=== PATIENT | male | born 1940 | race Caucasian/White ===

== ENCOUNTER 2017-06-18 19:07 | Emergency (ER) | payer MEDICARE, SELFPAY | END 2017-06-18 22:45 | disposition home or self-care (01) | PROVIDERS: Emergency Provider Emergency Medicine; Family Provider Family Medicine; Visit Provider Emergency Medicine | DX: R10.31 Right lower quadrant pain (principal); K21.9 Gastro-esophageal reflux disease without esophagitis; D64.9 Anemia, unspecified; Z79.899 Other long term (current) drug therapy; Z72.0 Tobacco use; I20.8 Other forms of angina pectoris; I10 Essential (primary) hypertension | CPT/HCPCS: 71020; 74176; 80053; 81001; 85025; 87086; 96374; 96375; 99284 ==

== ENCOUNTER 2017-07-20 19:33 | Observation (INO) | payer MEDICARE, SELFPAY ==
[2017-07-20 19:36] VITALS: BP 105/68; PULSE 87; RESP 24; TEMP 37.4; O2SAT 98; BMI 23.6
--- NOTE | 2017-07-20 19:47 | CT_ITS ---
CT head/brain wo con Ordering Physician: Arlyn Tsang MD Patient Age: 77 years: Male HSTORY: ITS.REASON: amsaltered mental status. TECHNIQUE: Standard axial CT head without contrast.. Brain and bone windows performed and sent to PACS COMPARISON :. No previous studies available. FINDINGS No acute intracranial findings. No hemorrhage. No mass. No subdural collection. Diffuse cerebral atrophy, typical to slightly advanced for age. This yields generous CSF space surrounding the cerebral hemispheres along with slightly generous sulci bilaterally. The ventricles appear normal in size. Basal cisterns are generous volume but clear.. No territorial infarct. Likely tiny 3 mm lacunar at the left basal ganglia axial image 26. Most certainly old feature. The posterior fossa unremarkable. CP angles clear. The bone windows. Skull Satisfactory. The visualized paranasal sinuses are well-developed and clear with orbits unremarkable. Opacification of several mastoid air cells toward right mastoid tip reflecting minimal right mastoid effusion at right mastoid tip. The more superior air cells right mastoid appear clear. Left mastoid air cells unremarkable IACs unremarkable. Middle ear clear. IMPRESSION: No acute intracranial findings Diffuse cerebral atrophy.
[2017-07-20 20:05] VITALS: BP 102/77; PULSE 86; RESP 20; O2SAT 98
--- NOTE | 2017-07-20 20:14 | HMH.EDAMS ---
ED Disposition Clinical Impression: Hypoglycemia Altered mental status Qualifiers: Altered mental status type: unspecified Qualified Code(s): R41.82 - Altered mental status, unspecified Disposition: Admitted as Observation Condition on Discharge: Fair Time of Disposition: 20:30 - Critical Care Critical Care Time: No Attestation: On 07/20/17, the high probability of a clinically significant, sudden or life threatening deterioration of the following system(s) required my full and direct attention, intervention and personal management. The time I documented below is in addition to time spent performing reported procedures but includes the following listed in this critical care notation. Total Critical Care Time: 45 Vital system(s) involved:: Metabolic Failure My critical care processes included: Assessment & monitoring of V/S, Initial and Re-exams, Data Review/Interpretation, Coordinating Care, Medication Orders and management, Documentation Medical Decision Making - Medical Records Medical records reviewed: Yes: I reviewed the patient's medical records. Vital Signs: 07/20/17 19:36 07/20/17 20:05 07/20/17 21:57 Temperature 99.4 F 98.5 F Temperature Source Oral Oral Pulse Rate 87 Pulse Rate [Brachial] Pulse Rate [Right Ulnar] 87 86 Respiratory Rate 24 20 18 Blood Pressure 107/77 Blood Pressure [Right Arm] 105/68 102/77 Blood Pressure Mean [Right Arm] 80 85 Blood Pressure Source Automatic Cuff Blood Pressure Source [Right Arm] Manual Cuff/ Auscultation Automatic Cuff Blood Pressure Position Supine Blood Pressure Position [Right Arm] Supine Supine 02 Sat by Pulse Oximetry 98 98 Oxygen Delivery Method Room Air Room Air Nasal Cannula Oxygen Flow Rate (LPM) 2 07/20/17 22:00 Temperature 97.7 F Temperature Source Oral Pulse Rate Pulse Rate [Brachial] 85 Pulse Rate [Right Ulnar] Respiratory Rate 18 Blood Pressure Blood Pressure [Right Arm] 156/61 Blood Pressure Mean [Right Arm] 92 Blood Pressure Source Blood Pressure Source [Right Arm] Automatic Cuff Blood Pressure Position Blood Pressure Position [Right Arm] Sitting 02 Sat by Pulse Oximetry 100 Oxygen Delivery Method Nasal Cannula Oxygen Flow Rate (LPM) 2 - Lab Data Lab results reviewed: Yes: I reviewed the patient's lab results. Lab Results 07/20/17 20:33: WBC 4.8, RBC 3.17 L, Hgb 10.1 L, Hct 30.9 L, MCV 97.5 H, MCH 31.7 H, MCHC 32.5, RDW 14.4, Plt Count 191, MPV 9.8, Neut % (Auto) 77.6, Lymph % (Auto) 11.8, [place] % (Auto) 9.3, Eos % (Auto) 0.9, Baso % (Auto) 0.4, Neut # (Auto) 3.7, Lymph # (Auto) 0.[address], [place] # (Auto) 0.4, Eos # (Auto) 0.0, Baso # (Auto) 0.0 07/20/17 20:33: Sodium 141, Potassium 3.5, Chloride 103, Carbon Dioxide 29, Anion Gap 12.5, BUN 21 H, Creatinine 1.10, Estimated Creat Clear 60, Estimated GFR 65, Est GFR ( Amer) 79, Glucose 124 H, Calcium 8.7, Total Bilirubin 0.9, AST 31, ALT 33, Alkaline Phosphatase 146 H, Total Protein 6.1 L, Albumin 3.2 L, Globulin 2.9, Albumin/Globulin Ratio 1.1 Result diagrams: 07/20/17 20:33 07/20/17 20:33 Orders (Tests/Meds): ED MEDICATIONS Generic Name Dose Route Start Last Admin Trade Name Sixto PRN Reason Stop Dose Admin Aspirin 81 mg 07/21/17 09:00 Aspirin 81mg Enteric Coated Tablet PO 08/20/17 08:59 DAILY [facility] Atorvastatin Calcium 40 mg 07/21/17 21:00 Lipitor 40mg Tablet PO 08/20/17 20:59 HS [facility] Blood Glucose Test Strips 1 each 07/20/17 21:00 07/20/17 22:42 Fsbs (Bedside Glucose), Results Only !! FS 08/19/17 20:59 1 each ACHS VIGNESH Administration Clopidogrel Bisulfate 75 mg 07/21/17 09:00 Plavix 75mg Tablet PO 08/20/17 08:59 DAILY VIGNESH Dextrose 1,000 mls @ 75 mls/hr 07/20/17 21:46 07/20/17 22:42 Dextrose 5% In Water 1000mls Iv Soln IV 08/19/17 21:29 75 mls/hr .[id number] VIGNESH Administration Insulin Human Lispro 0 unit 07/20/17 21:00 07/20/17 22:42 Humalog 100 Units/Ml 3ml Vial (Ssi) SQ
--- NOTE | 2017-07-20 20:17 | ED_ITS ---
ED Disposition Clinical Impression: Hypoglycemia Altered mental status Qualifiers: Altered mental status type: unspecified Qualified Code(s): R41.82 - Altered mental status, unspecified Disposition: Admitted as Observation Condition on Discharge: Fair Time of Disposition: 20:30 - Critical Care Critical Care Time: No Attestation: On 07/20/17, the high probability of a clinically significant, sudden or life threatening deterioration of the following system(s) required my full and direct attention, intervention and personal management. The time I documented below is in addition to time spent performing reported procedures but includes the following listed in this critical care notation. Total Critical Care Time: 45 Vital system(s) involved:: Metabolic Failure My critical care processes included: Assessment & monitoring of V/S, Initial and Re-exams, Data Review/Interpretation, Coordinating Care, Medication Orders and management, Documentation Medical Decision Making - Medical Records Medical records reviewed: Yes: I reviewed the patient's medical records. Vital Signs: 07/20/17 19:36 07/20/17 20:05 07/20/17 21:57 Temperature 99.4 F 98.5 F Temperature Source Oral Oral Pulse Rate 87 Pulse Rate [Brachial] Pulse Rate [Right Ulnar] 87 86 Respiratory Rate 24 20 18 Blood Pressure 107/77 Blood Pressure [Right Arm] 105/68 102/77 Blood Pressure Mean [Right Arm] 80 85 Blood Pressure Source Automatic Cuff Blood Pressure Source [Right Arm] Manual Cuff/ Auscultation Automatic Cuff Blood Pressure Position Supine Blood Pressure Position [Right Arm] Supine Supine 02 Sat by Pulse Oximetry 98 98 Oxygen Delivery Method Room Air Room Air Nasal Cannula Oxygen Flow Rate (LPM) 2 07/20/17 22:00 Temperature 97.7 F Temperature Source Oral Pulse Rate Pulse Rate [Brachial] 85 Pulse Rate [Right Ulnar] Respiratory Rate 18 Blood Pressure Blood Pressure [Right Arm] 156/61 Blood Pressure Mean [Right Arm] 92 Blood Pressure Source Blood Pressure Source [Right Arm] Automatic Cuff Blood Pressure Position Blood Pressure Position [Right Arm] Sitting 02 Sat by Pulse Oximetry 100 Oxygen Delivery Method Nasal Cannula Oxygen Flow Rate (LPM) 2 - Lab Data Lab results reviewed: Yes: I reviewed the patient's lab results. Lab Results 07/20/17 20:33: WBC 4.8, RBC 3.17 L, Hgb 10.1 L, Hct 30.9 L, MCV 97.5 H, MCH 31.7 H, MCHC 32.5, RDW 14.4, Plt Count 191, MPV 9.8, Neut % (Auto) 77.6, Lymph % (Auto) 11.8, [place] % (Auto) 9.3, Eos % (Auto) 0.9, Baso % (Auto) 0.4, Neut # ( Auto) 3.7, Lymph # (Auto) 0.6 L, [place] # (Auto) 0.4, Eos # (Auto) 0.0, Baso # ( Auto) 0.0 07/20/17 20:33: Sodium 141, Potassium 3.5, Chloride 103, Carbon Dioxide 29, Anion Gap 12.5, BUN 21 H, Creatinine 1.10, Estimated Creat Clear 60, Estimated GFR 65, Est GFR ( Amer) 79, Glucose 124 H, Calcium 8.7, Total Bilirubin 0.9, AST 31, ALT 33, Alkaline Phosphatase 146 H, Total Protein 6.1 L, Albumin 3.2 L, Globulin 2.9, Albumin/Globulin Ratio 1.1 Result diagrams: 07/20/17 20:33 07/20/17 20:33 Orders (Tests/Meds): ED MEDICATIONS Generic Name Dose Route Start Last Admin Trade Name Freq PRN Reason Stop Dose Admin Aspirin 81 mg 07/21/17 09:00 Aspirin 81mg E
[2017-07-20 20:41] LABS: Basophils % 0.4 % (0.1-2.0); Eosinophils % 0.9 % (0.1-12.0); Hematocrit 30.9 % (42.0-52.0); Hemoglobin 10.1 g/dL (14.1-18.0); Lymphocytes # 0.6 K/mm3 (0.7-4.5); Lymphocytes % 11.8 K/mm3 (10-50); Mean Corpuscular HGB Conc 32.5 g/dL (31.8-35.4); Mean Corpuscular Hemoglobin 31.7 pg (27.0-31.2); Mean Corpuscular Volume 97.5 fl (80-94); Mean Platelet Volume 9.8 fl (7.4-10.4); Monocytes # 0.4 K/mm3 (0.1-1.0); Monocytes % 9.3 % (1.7-9.3); Neutrophils # 3.7 K/mm3 (1.8-7.8); Neutrophils % 77.6 % (37.0-80.0); Platelet Count 191 K/mm3 (142-424); Red Blood Count 3.17 M/mm3 (4.60-6.20); Red Cell Distribution Width 14.4 % (11.5-17.5); White Blood Count 4.8 K/mm3 (4.8-10.8)
[2017-07-20 20:54] LABS: Alanine Aminotransferase 33 U/L (12-78); Albumin Level 3.2 gm/dL (3.4-5.0); Albumin/Globulin Ratio 1.1 (1.1-1.8); Alkaline Phosphatase 146 U/L (46-116); Anion Gap 12.5 mEq/L (5-15); Aspartate Amino Transferase 31 U/L (15-37); Bilirubin,Total 0.9 mg/dL (0.2-1.0); Blood Urea Nitrogen 21 mg/dL (7-18); Calcium 8.7 mg/dL (8.5-10.1); Carbon Dioxide 29 mmol/L (21.0-32.0); Chloride 103 mmol/L (98-107); Creatinine Clearance Estimated 60 mL/min (0-300); Estimated Glomerular Filt Rate 65 ml/min (>60); GFR (African American) 79 ML/MIN (>60); Globulin 2.9 gm/dl (1.3-3.2); Glucose 124 mg/dL (74-106); Potassium 3.5 mmoL/L (3.5-5.1); Sodium 141 mmol/L (136-145); Total Protein,Serum 6.1 gm/dL (6.4-8.2)
[2017-07-20 21:57] VITALS: BP 107/77; PULSE 87; RESP 18; TEMP 36.9; O2SAT 98
[2017-07-20 22:00] VITALS: BP 156/61; PULSE 85; RESP 18; TEMP 36.5; O2SAT 100; BMI 28.0
--- NOTE | 2017-07-20 22:08 | XR_ITS ---
XR lumbar spine 5 view Ordering Physician: Soy Edouard MD Patient Age: 77 years: Male HISTORY: ITS.REASON: s/p fall, pain Fall 3 weeks ago with large amount of bruising left aspect of lower back.. Bruising extends to left gluteus. TECHNIQUE: 5 view lumbar spine series AP lateral both obliques and lateral spot view lumbar spine submitted for review COMPARISON : Also 2008 lumbar spine series, as well as May 23, 2017 2 view chest FINDINGS . Decreased height at L1 again noted. It appears similar to a April 2017 chest x-ray but better viewed on today's lumbar series.. This same process is also seen on previous CT studies from May 2017 and November 2016. However if any thing appears to be some subtle increased sclerosis throughout L1 and particularly at the inferior endplate of L1 and superior endplate of L2 with marked irregularity of these endplates. Most likely this reflects some progressive] reactive endplate changes degenerated disc and Schmorl's node with generous circumferential marginal osteophytes L1/2 disc level. However possibility of a discitis is also entertained radiographically. I see the white count is normal but suggest correlation with sedimentation rate/ ESR; and if significant back pain here a follow-up MR lumbar spine with and without contrast would be be warranted. ( Again reviewing the CT from May there is some irregularity & fragmentation about this narrowed disc, particularly on the left margin of the irregular endplate, with numerous subchondral cystic changes on both sides of this disc, but I see discrete paraspinal mass to support discitis or other process) L2/3. Disc is fairly well-maintained but with generous marginal osteophytes the left L3/4 Degenerative disc space narrowing to posteriorly and to the right right with a generous marginal osteophytes to the right L4/5:. mild levoscoliosis at this level, with Marked disc space narrowing to the right & marginal osteophytes to the right. L5/S1. . Prominent diffuse disc space narrowing with mild sclerotic reactive endplate changes but intact endplates. Spondylosis with mild posterior hypertrophic ridging. Moderate Facet arthropathy, & hypertrophy. SI joints appear satisfactory sacrum unremarkable. Diffuse demineralization of pelvis. AP view of hips, intact. Right kidney: Again see the long-standing abnormal area of calcification along inferior pole the right kidney medial aspect. This is seen on previous CT dating back to 2007. Likely reflects residual from old injury or hemorrhage. There is also some scattered punctate calculi throughout the right kidney noted.. Left kidney. Round density medial to the left kidney measures 7.8 cm cm round density medial to the left kidney compatible with a large cyst which is been previously seen here on prior CT. At the pelvis received a calcified vas deferens and clip right lower quadrant from appendectomy clips right upper quadrant from cholecystectomy. Aorta is calcified with no obvious aneurysm on plain film nor prior CT -------IMPRESSION 1. No discrete acute findings no fractures. 2. Multilevel degenerative changes lumbar spine again evident.: 3. Particularly notable is the very irregular & sclerotic endplates about the degenerated L1/L2 disc space., . Associated slight loss of height & slight wedging at L1 appear stable since AprXR Irregularity at this L1/2 disc most likely a long-standing & slowly progressing erosive reactive endplate changes from disc degeneration and and Schmorl's node formation.. The possibility of a underlying discitis is briefly considered with this radiographic appearance, but felt unlikely after reviewing normal white count reviewing recent reconstruction views the lumbar spin
--- NOTE | 2017-07-20 22:08 | XR_ITS ---
XR pelvis 1-2V Ordering Physician: Soy Edouard MD Patient Age: 77 years: Male HISTORY: ITS.REASON: s/p fall, pain TECHNIQUE: AP pelvis radiograph COMPARISON :CT abdomen pelvis reconstructions 06/18/2017 FINDINGS Mild diffuse demineralization. Osseous pelvis appears intact. AP view the hips reveal no acute findings. The hip joint spaces with slight narrowing at superior medial aspect and some mild hypertrophic lipping about the margins of acetabulum right greater than left. Note minor cystic changes along the superior aspect of the right femoral neck at the subcapital region. This could reflect femoral acetabular impingement in the past.. Mild degenerative changes both hips. Mild sclerotic changes inferior right SI joint thickened mild degenerative change.. Diffuse faint atherosclerotic calcification throughout the arterial structures pelvis likely reflects underlying diabetes or renal disease.. The degenerative changes lower L-spine described on previous L-spine report IMPRESSION: ======= No fracture nor acute findings at the pelvis. . diffuse demineralization. Mild degenerative changes at hips Degenerative changes lower L-spine described on previous L-spine study.
--- NOTE | 2017-07-20 22:45 | PC.NURSE ---
TO RADIOLOGY PER STRETCHER FOR XRAYS
[2017-07-20 23:00] VITALS: O2SAT 98
[2017-07-20 23:36] LABS: POC Glucose,Bedside 139 mg/dL
[2017-07-21 04:00] VITALS: BP 122/43; PULSE 77; RESP 18; TEMP 36.7; O2SAT 96
--- NOTE | 2017-07-21 04:08 | PC.NURSE ---
REPORTED PAIN TO BACK UPON ADMISSION, PRN PAIN MEDICATION GIVEN. PT STATES 2 WEEKS AGO HE HAD FALLEN AND HIT HIS HEAD, BUTTOCKS, AND BACK, BRUISING NOTED TO LOWER LUMBAR REGION AND BUTTOCKS. PT FSBS STABLE. A&OX3. CASE ASSISTANT LUNG AUSUCLTATION. BS ACTIVE IN ALL 4 QAUDS. VSS. SHERMAN. PUPILS NON-REACTIVE, PT STATES HE HAS HAD SURGERY IN BOTH EYES. NO ACUTE DISTRESS NOTED. WILL CONTINUE TO MONITOR.
[2017-07-21 06:00] LABS: POC Glucose,Bedside 147 mg/dL
--- NOTE | 2017-07-21 06:33 | PC.NURSE ---
UPON ROUND IV NOTED TO BE INFILTRATED, IMMEDIATELY D/C FLUIDS, REMOVED IV, CATHETER WAS INTACT. WARM COMPRESS AND ELEVATED APPLIED. PT TOLERATED WELL AND DENIED PAIN AT IV SITE. NEW IV ACCESS WAD OBTAINED.
--- NOTE | 2017-07-21 07:04 | P.CONPHA_ITS ---
[facility] Pharm[facility] VTE Monitoring - Patient Demographics Admission date: 07/20/17 Report Date: 07/21/17 Time: 07:03 Allergies/Adverse Reactions: Patient Allergies No Known Allergies Allergy (Verified 07/20/17 22:04) Height: 1.68 m Weight: 78.925 kg Patient Problems: Current Active Problems Altered mental status (Acute) Hypoglycemia (Acute) - VTE Risk Labs: VTE Related Lab Results Hgb 10.1 g/dL (14.1-18.0) L 07/20/17 20:33 Hct 30.9 % (42.0-52.0) L 07/20/17 20:33 Plt Count 191 K/mm3 (142-424) 07/20/17 20:33 BUN 21 mg/dL (7-18) H 07/20/17 20:33 Creatinine 1.10 mg/dL (0.70-1.30) 07/20/17 20:33 Estimated Creat Clear 60 mL/min (0-300) 07/20/17 20:33 VTE Score: 6 VTE Risk Level: Moderate Risk - Prophylaxis VTE Prophylaxis Ordered?: Yes Types of VTE Prophylaxis: TEDS Knee High Location of Applied Device: Bilateral Lower Extremeties - VTE Diagnosis Confirmed Treatment or plan recommended: Continue Current Treatment
--- NOTE | 2017-07-21 07:20 | PC.NURSE ---
REPORT GIVEN TO Radha MENDES W/C
--- NOTE | 2017-07-21 07:28 | PC.NURSE ---
REPORT GIVEN Julian CREWS RN
[2017-07-21 07:40] VITALS: BP 145/56; PULSE 75; RESP 18; TEMP 36.6; O2SAT 97
--- NOTE | 2017-07-21 08:16 | HMH.DCSUM ---
General - General Admission date: 07/20/17 Objective Vital signs: Temp Pulse Resp BP Pulse Ox 97.9 F 75 18 145/56 97 07/21/17 07:40 07/21/17 07:40 07/21/17 07:40 07/21/17 07:40 07/21/17 07:40 Results Labs on day of discharge: Labs from last 24 hours 07/21/17 07/20/17 05:52 22:35 POC Glucose 147 139 Meds Home Medications Medication Instructions Recorded Confirmed Type Aspirin [Aspirin 81mg EC Tab] 81 mg PO DAILY 07/20/17 07/20/17 History Atorvastatin Calcium [Atorvastatin 40 mg PO HS 07/20/17 07/20/17 History 40mg Tab] Cholecalciferol (Vitamin D3) 5,000 unit PO DAILY 07/20/17 07/20/17 History [Vitamin D3] Clopidogrel Bisulfate [Plavix 75mg 75 mg PO DAILY 07/20/17 07/21/17 History Tab] Cyanocobalamin/Folic Acid [Vitamin 1 each PO DAILY 07/20/17 07/20/17 History D79-Neuhb Acid Tablet] Furosemide [Furosemide 40MG tAB] 40 mg PO DAILY 07/20/17 07/20/17 History Gabapentin [Gabapentin 400mg Cap] 400 mg PO TID 07/20/17 07/20/17 History Ibuprofen [Ibuprofen 600mg Tab] 600 mg PO QID PRN 07/20/17 07/20/17 History Irbesartan [Irbesartan] 75 mg PO DAILY 07/20/17 07/21/17 History Metformin HCl [Metformin 500mg 500 mg PO BID 07/20/17 07/21/17 History Tablet] Metoprolol Tartrate [Lopressor 25 mg PO BID 07/20/17 07/21/17 History 25mg tablet] Pantoprazole Sodium [Protonix 40mg 40 mg PO DAILY 07/20/17 07/20/17 History tablet] Pioglitazone HCl [Pioglitazone HCl] 30 mg PO DAILY 07/20/17 07/21/17 History glipiZIDE [Glipizide ER] 10 mg PO BID 07/20/17 07/21/17 History Allergies Allergy/AdvReac Type Severity Reaction Status Date / Time No Known Allergies Allergy Verified 07/20/17 22:04 Discharge Plan - Patient Discharge Instructions ACTIVITY: Continue current activity DIET: diabetic diet - Follow up Plan Follow up with: Navi Laguna [Primary Care Provider] - (3-4 days) Disposition: Home, Self-Residential Medications: Home Medications Medication Instructions Recorded Confirmed Type Aspirin [Aspirin 81mg EC Tab] 81 mg PO DAILY 07/20/17 07/20/17 History Atorvastatin Calcium [Atorvastatin 40 mg PO HS 07/20/17 07/20/17 History 40mg Tab] Cholecalciferol (Vitamin D3) 5,000 unit PO DAILY 07/20/17 07/20/17 History [Vitamin D3] Clopidogrel Bisulfate [Plavix 75mg 75 mg PO DAILY 07/20/17 07/21/17 History Tab] Cyanocobalamin/Folic Acid [Vitamin 1 each PO DAILY 07/20/17 07/20/17 History J18-Comkj Acid Tablet] Furosemide [Furosemide 40MG tAB] 40 mg PO DAILY 07/20/17 07/20/17 History Gabapentin [Gabapentin 400mg Cap] 400 mg PO TID 07/20/17 07/20/17 History Ibuprofen [Ibuprofen 600mg Tab] 600 mg PO QID PRN 07/20/17 07/20/17 History Irbesartan [Irbesartan] 75 mg PO DAILY 07/20/17 07/21/17 History Metformin HCl [Metformin 500mg 500 mg PO BID 07/20/17 07/21/17 History Tablet] Metoprolol Tartrate [Lopressor 25 mg PO BID 07/20/17 07/21/17 History 25mg tablet] Pantoprazole Sodium [Protonix 40mg 40 mg PO DAILY 07/20/17 07/20/17 History tablet] Pioglitazone HCl [Pioglitazone HCl] 30 mg PO DAILY 07/20/17 07/21/17 History glipiZIDE [Glipizide ER] 10 mg PO BID 07/20/17 07/21/17 History Prescriptions/Medication Reconciliation: Continue Gabapentin [Gabapentin 400mg Cap] 400 mg PO TID Pioglitazone HCl [Pioglitazone HCl] 30 mg PO DAILY Irbesartan [Irbesartan] 75 mg PO DAILY Aspirin [Aspirin 81mg EC Tab] 81 mg PO DAILY Pantoprazole Sodium [Protonix 40mg tablet] 40 mg PO DAILY Cholecalciferol (Vitamin D3) [Vitamin D3] 5,000 unit PO DAILY Atorvastatin Calcium [Atorvastatin 40mg Tab] 40 mg PO HS Ibuprofen [Ibuprofen 600mg Tab] 600 mg PO QID PRN PRN Reason: As Needed For Fever Or Pain Furosemide [Furosemide 40MG tAB] 40 mg PO DAILY Metoprolol Tartrate [Lopressor 25mg tablet] 25 mg PO BID Clopidogrel Bisulfate [Plavix 75mg Tab] 75 mg PO DAILY Metformin HCl [Metformin 5
--- NOTE | 2017-07-21 08:19 | P.DS_ITS ---
General - General Admission date: 07/20/17 Objective Vital signs: Temp Pulse Resp BP Pulse Ox 97.9 F 75 18 145/56 97 07/21/17 07:40 07/21/17 07:40 07/21/17 07:40 07/21/17 07:40 07/21/17 07:40 Results Labs on day of discharge: Labs from last 24 hours 07/21/17 07/20/17 05:52 22:35 POC Glucose 147 139 Meds Home Medications Medication Instructions Recorded Confirmed Type Aspirin [Aspirin 81mg EC Tab] 81 mg PO DAILY 07/20/17 07/20/17 History Atorvastatin Calcium [Atorvastatin 40 mg PO HS 07/20/17 07/20/17 History 40mg Tab] Cholecalciferol (Vitamin D3) 5,000 unit PO DAILY 07/20/17 07/20/17 History [Vitamin D3] Clopidogrel Bisulfate [Plavix 75mg 75 mg PO DAILY 07/20/17 07/21/17 History Tab] Cyanocobalamin/Folic Acid [Vitamin 1 each PO DAILY 07/20/17 07/20/17 History J24-Gdhcl Acid Tablet] Furosemide [Furosemide 40MG tAB] 40 mg PO DAILY 07/20/17 07/20/17 History Gabapentin [Gabapentin 400mg Cap] 400 mg PO TID 07/20/17 07/20/17 History Ibuprofen [Ibuprofen 600mg Tab] 600 mg PO QID PRN 07/20/17 07/20/17 History Irbesartan [Irbesartan] 75 mg PO DAILY 07/20/17 07/21/17 History Metformin HCl [Metformin 500mg 500 mg PO BID 07/20/17 07/21/17 History Tablet] Metoprolol Tartrate [Lopressor 25 mg PO BID 07/20/17 07/21/17 History 25mg tablet] Pantoprazole Sodium [Protonix 40mg 40 mg PO DAILY 07/20/17 07/20/17 History tablet] Pioglitazone HCl [Pioglitazone HCl] 30 mg PO DAILY 07/20/17 07/21/17 History glipiZIDE [Glipizide ER] 10 mg PO BID 07/20/17 07/21/17 History Allergies Allergy/AdvReac Type Severity Reaction Status Date / Time No Known Allergies Allergy Verified 07/20/17 22:04 Discharge Plan - Patient Discharge Instructions ACTIVITY: Continue current activity DIET: diabetic diet - Follow up Plan Follow up with: Navi Laguna [Primary Care Provider] - (3-4 days) Disposition: Home, Self-Fdc Medications: Home Medications Medication Instructions Recorded Confirmed Type Aspirin [Aspirin 81mg EC Tab] 81 mg PO DAILY 07/20/17 07/20/17 History Atorvastatin Calcium [Atorvastatin 40 mg PO HS 07/20/17 07/20/17 History 40mg Tab] Cholecalciferol (Vitamin D3) 5,000 unit PO DAILY 07/20/17 07/20/17 History [Vitamin D3] Clopidogrel Bisulfate [Plavix 75mg 75 mg PO DAILY 07/20/17 07/21/17 History Tab] Cyanocobalamin/Folic Acid [Vitamin 1 each PO DAILY 07/20/17 07/20/17 History V13-Bmrge Acid Tablet] Furosemide [Furosemide 40MG tAB] 40 mg PO DAILY 07/20/17 07/20/17 History Gabapentin [Gabapentin 400mg Cap] 400 mg PO TID 07/20/17 07/20/17 History Ibuprofen [Ibuprofen 600mg Tab] 600 mg PO QID PRN 07/20/17 07/20/17 History Irbesartan [Irbesartan] 75 mg PO DAILY 07/20/17 07/21/17 History Metformin HCl [Metformin 500mg 500 mg PO BID 07/20/17 07/21/17 History Tablet] Metoprolol Tartrate [Lopressor 25 mg PO BID 07/20/17 07/21/17 History 25mg tablet] Pantoprazole Sodium [Protonix 40mg 40 mg PO DAILY 07/20/17 07/20/17 History tablet] Pioglitazone HCl [Pioglitazone HCl] 30 mg PO DAILY 07/20/17 07/21/17 History glipiZIDE [Glipizide ER] 10 mg PO BI
--- NOTE | 2017-07-21 09:44 | HMH.HPDC ---
<Lauryn Munoz - Last Filed: 07/21/17 15:45> General - General Admission date: 07/20/17 Discharge date: 07/21/17 *Admission Date: 07/20/17 *Chief complaint: low blood sugar *History of present illness: Mr Ceron is a 77-year-old male patient with a history of Type 2 DM, CAD with cardiomyopathy, and depression who was brought to the emergency room by EMS after he was found unresponsive with a low blood sugar at home. He was given 1 dose of dextrose which immediately restored his level of alertness. The son stated that a similar episode had happened early in the morning when he first went to see his dad. He was confused at that time and when he check his sugar, he found it to be low. He gave him some sweets which increased his BS. Later with the syncopal episode and heart disease the son was afraid not to have him assessed in the ER. He awakened in the ER. He denied CP and SOB. He was admitted for further evaluation and treatment. This AM the patient remains comfortable. He is sitting up in the bed eating his breakfast. To note also: the patient was admitted to [facility] 05/19-05/26/2017 with CAP. He also had a NSTEMI and with cardiac cath had stent placements. He went home from this hospitalization with his sons looking after him. He did have a fall off of the porch and hurt his back. He has been ambulating without difficulty. Patient states that he was started on a new diabetic med last week (does not remember the name) after which he has had low BS. [facility] History Medical History: Reports:: Cancer (SKIN), Congestive Heart Failure, Diabetes Mellitus Type 2, Hyperlipidemia Denies:: Diabetes Mellitus Type 1 Other Medical History: Reports: Cataracts Other Surgeries: Yes: Appendectomy, Cancer Surgery (SKIN CA SURGERY), Coronary Stent Amputation: No Fractures: No - *Social History Smoking Status: Never smoker Alcohol Intake: never Occupational Status: retired, disabled Household Members: none - Psychiatric History Expresses thoughts of harming self/others: None Suicide Plan Description: No Plan *Family Hx:: Diabetes Review of Systems - Constitutional Denies anorexia, Denies body ache(s), Denies fever(s) - ENT Reports sore throat, Denies dizziness, Denies nasal congestion - *Cardiovascular Denies chest pain, Denies shortness of breath, Denies rapid, pounding, or irregular heartbeat - *Respiratory Denies chest congestion, Denies cough, Denies shortness of breath - *Gastrointestinal Denies abdominal pain, Denies change in bowel habits, Denies loose stools, Denies nausea, Denies vomiting - *Genitourinary Denies difficulty urinating, Denies painful urination - *Musculoskeletal Reports joint pain, Reports back pain, Denies abnormal walking - Psychiatric Reports depression Exam Vital signs and Labs for Last 24 Hours: Temp Pulse Resp BP Pulse Ox 97.9 F 75 18 145/56 97 07/21/17 07:40 07/21/17 07:40 07/21/17 07:40 07/21/17 07:40 07/21/17 07:40 Laboratory Results - last 24 hr 07/20/17 22:35: POC Glucose 139 07/21/17 05:52: POC Glucose 147 I & O for Last 24 hours: Intake & Output 07/18/17 07/19/17 07/20/17 07/21/17 11:59 11:59 11:59 11:59 Intake Total 380 / 380 Output Total 300 / 300 Balance 80 / 80 Weight 173 lb 15.997 oz Radiology Reports for the Last 24 Hours: 07/20/[address] IMPRESSION: No acute intracranial findings Diffuse cerebral atrophy. X-ray of back 07/20/17 2. Multilevel degenerative changes lumbar spine again evident.: 3. Particularly notable is the very irregular & sclerotic endplates about the degenerated L1/L2 disc space., . Associated slight loss of height & slight wedging at L1 appear stable since AprXR Irregularity at this L1/2 disc most likely a long-standing & slowly progressing erosive reactive endplate changes from disc degeneration and and Schmorl's node formation.. The possibility of a unde
--- NOTE | 2017-07-21 11:57 | SW/DCPLANNER ---
Updated patient information has been faxed to [facility] to resume patient home health services. I have also spoke with Nilda from [facility] to confirm that Mr Ceron is still a patient at this agency. Patient discharged home this morning.
== END 2017-07-21 09:45 | disposition home or self-care (01) ==
LOC: ER 20:22 → 2ND 20:52
PROVIDERS: Admitting Provider Family Medicine; Emergency Provider Emergency Medicine; Family Provider Family Medicine; PCP Family Medicine; Visit Provider Family Medicine
DX: E11.649 Type 2 diabetes mellitus with hypoglycemia without coma (principal); R41.82 Altered mental status, unspecified; I25.10 Atherosclerotic heart disease of native coronary artery without angina pectoris; I42.9 Cardiomyopathy, unspecified; I25.2 Old myocardial infarction; E78.5 Hyperlipidemia, unspecified; I50.9 Heart failure, unspecified; Z95.5 Presence of coronary angioplasty implant and graft; Z85.828 Personal history of other malignant neoplasm of skin; Z79.84 Long term (current) use of oral hypoglycemic drugs; Z96.41 Presence of insulin pump (external) (internal); Z79.02 Long term (current) use of antithrombotics/antiplatelets; Z79.82 Long term (current) use of aspirin; Z79.899 Other long term (current) drug therapy
CPT/HCPCS: 70450; 72100; 72170; 80053; 82962; 85025; 93005; 96366; 99284; G0378

== ENCOUNTER 2017-09-25 06:12 | Inpatient (IN) ==
[2017-09-25 06:45] LABS: Basophils % 0.5 % (0.1-2.0); Eosinophils # 0.1 K/mm3 (0.0-0.4); Eosinophils % 2.2 % (0.1-12.0); Hematocrit 36.2 % (42.0-52.0); Hemoglobin 11.2 g/dL (14.1-18.0); Lymphocytes # 1.8 K/mm3 (0.7-4.5); Lymphocytes % 37.5 K/mm3 (10-50); Mean Corpuscular Hemoglobin 31.8 pg (27.0-31.2); Mean Corpuscular Volume 102.8 fl (80-94); Mean Platelet Volume 9.7 fl (7.4-10.4); Monocytes # 0.4 K/mm3 (0.1-1.0); Monocytes % 9.2 % (1.7-9.3); Neutrophils # 2.4 K/mm3 (1.8-7.8); Neutrophils % 50.5 % (37.0-80.0); Platelet Count 174 K/mm3 (142-424); Red Blood Count 3.52 M/mm3 (4.60-6.20); Red Cell Distribution Width 13.7 % (11.5-17.5); White Blood Count 4.7 K/mm3 (4.8-10.8)
[2017-09-25 06:53] LABS: Anion Gap 5.6 mEq/L (5-15); Potassium 3.6 mmoL/L (3.5-5.1)
--- NOTE | 2017-09-25 07:22 | Emergency Department Note ---
ED Disposition Clinical Impression: Congestive heart failure Qualifiers: Heart failure type: unspecified Heart failure chronicity: acute on chronic Qualified Code(s): I50.9 - Heart failure, unspecified Community acquired pneumonia Qualifiers: Laterality: unspecified laterality Qualified Code(s): J18.9 - Pneumonia, unspecified organism Disposition: Admitted as Observation Condition on Discharge: Good Referrals: Navi Laguna [Primary Care Provider] - - Critical Care Critical Care Time: No Attestation: On 09/25/17, the high probability of a clinically significant, sudden or life threatening deterioration of the following system(s) required my full and direct attention, intervention and personal management. The time I documented below is in addition to time spent performing reported procedures but includes the following listed in this critical care notation. Medical Decision Making - Medical Records Medical records reviewed: Yes: I reviewed the patient's medical records. - Arturo Inquiry Pt receiving controlled substance: No Vital Signs: 09/25/17 06:14 09/25/17 06:53 Temperature 97.7 F Temperature Source Temporal Artery Scan Pulse Rate 87 Pulse Rate [Right Radial] 85 Respiratory Rate 20 Blood Pressure [Right Arm] 111/89 Blood Pressure Mean [Right Arm] 96 Blood Pressure Source [Right Arm] Automatic Cuff Blood Pressure Position [Right Arm] Supine 02 Sat by Pulse Oximetry 92 L Oxygen Delivery Method Room Air - Lab Data Lab results reviewed: Yes: I reviewed the patient's lab results. Lab Results 09/25/17 06:20: WBC 4.7 L, RBC 3.52 L, Hgb 11.2 L, Hct 36.2 L, MCV 102.8 H, MCH 31.8 H, MCHC 31.0 L, RDW 13.7, Plt Count 174, MPV 9.7, Neut % (Auto) 50.5, Lymph % (Auto) 37.5, [place] % (Auto) 9.2, Eos % (Auto) 2.2, Baso % (Auto) 0.5, Neut # (Auto) 2.4, Lymph # (Auto) 1.8, [place] # (Auto) 0.4, Eos # (Auto) 0.1, Baso # (Auto) 0.0 09/25/17 06:20: Sodium 138, Potassium 3.6, Chloride 102, Carbon Dioxide 34 H, Anion Gap 5.6, BUN 23 H, Creatinine 0.94, Estimated Creat Clear 65, Estimated GFR 78, Est GFR ( Amer) 94, Glucose 286 H 09/25/17 06:20: B-Natriuretic Peptide 610 H 09/25/17 06:20: Total Creatine Kinase 159, CK-MB (CK-2) 4.7 H, CK-MB (CK-2) Rel Index 3.0, Troponin I 0.03, TSH 4.41 H, Thyroxine (T4) 12.5 Result diagrams: 09/25/17 06:20 09/25/17 06:20 Orders (Tests/Meds): ED MEDICATIONS Discontinued Medications Generic Name Dose Route Start Last Admin Trade Name Freq PRN Reason Stop Dose Admin Albuterol/Ipratropium 3 ml 09/25/17 06:31 09/25/17 06:51 Duoneb 3ml Neb IH 09/25/17 06:32 3 ml ONCE ONE Administration Furosemide 40 mg 09/25/17 07:50 09/25/17 07:56 Lasix 40mg/4ml Vial IV 09/25/17 07:51 40 mg ONCE ONE Administration Methylprednisolone Sodium Succinate 125 mg 09/25/17 06:31 09/25/17 06:37 Solu-Medrol 125mg/2ml Vial IV 09/25/17 06:32 125 mg ONCE ONE Administration ORDERS Category Date Time Status XR chest portable Stat Exams 09/25/17 06:31 Taken - ECG Data Tracing #1 I reviewed this ECG and interpreted as documented below: Normal Sinus Rhythm: Yes Ischemic changes: non-specific ST-T wave changes Resp/SOB HPI - General Chief Complaint: Shortness of Breath/Dyspnea Stated Complaint: SOB Time Seen by Provider: 09/25/17 07:22 Mode of Arrival: Ambulatory Source of Information: Patient, Relative, Medical Record Limitations: No Limitations Description of Symptoms (Recalled from ER Triage Doc. by RN): trouble breathing with back pain for 2 weeks, states he was dropped by his pmd in [place] - History of Present Illness progressive sob over the last 2 weeks with hx of chf Complaint: shortness of breath Onset (ago): day(s) Context: medication noncompliance Severity: moderate Relieving factors: oxygen Known history of: congestive heart failure Treatment prior to arrival: oxygen - Related Data Home oxygen amount: 2 liters Home Medications Medication Instructions Recorded Confirmed Aspirin [Aspirin 81mg EC Tab] 81 mg PO DAILY 07/20/17 09/25/17 Atorvastatin Calcium [Atorvastatin 40 mg PO HS 07/20/17 09/25/17 40mg Tab] Cholecalciferol (Vitamin D3) 5,000 unit PO DAILY 07/20/17 09/25/17 [Vitamin D3] Clopidogrel Bisulfate [Plavix 75mg 75 mg PO DAILY 07/20/17 09/25/17 Tab] Cyanocobalamin/Folic Acid [Vitamin 1 each PO DAILY 07/20/17 09/25/17 A17-[id number] Acid Tablet] Furosemide [Furosemide 40MG tAB] 40 mg PO DAILY 07/20/17 09/25/17 Gabapentin [Gabapentin 400mg Cap] 400 mg PO TID 07/20/17 09/25/17 Ibuprofen [Ibuprofen 600mg Tab] 600 mg PO QID PRN 07/20/17 09/25/17 Irbesartan 75 mg PO DAILY 07/20/17 09/25/17 Metformin HCl [Metformin 500mg 500 mg PO BID 07/20/17 09/25/17 Tablet] Metoprolol Tartrate [Lopressor 25 mg PO BID 07/20/17 09/25/17 25mg tablet] Pantoprazole Sodium [Protonix 40mg 40 mg PO DAILY 07/20/17 09/25/17 tablet] Pioglitazone HCl 30 mg PO DAILY 07/20/17 09/25/17 Allergies Allergy/AdvReac Type Severity Reaction Status Date / Time No Known Allergies Allergy Verified 07/20/17 22:04 [facility] History I have reviewed the patient's past medical history: Yes Medical History: Reports:: Congestive Heart Failure, Diabetes Mellitus Type 2, Hyperlipidemia Denies:: Cancer, Diabetes Mellitus Type 1, MRSA Other Medical History: Reports: Cataracts Other Surgeries: Yes: Angiogram, Appendectomy, Cancer Surgery (SKIN CA SURGERY) , Coronary Stent Amputation: No Fractures: No - Social History Smoking Status: Former smoker Alcohol Intake: never Occupational Status: retired, disabled Household Members: none - Psychiatric History Expresses thoughts of harming self/others: None Suicide Plan Description: No Plan Family Hx:: Diabetes ROS Obtained: Yes All systems reviewed & no additional complaints - Constitutional Constitutional: Denies fever(s) - Eyes Eyes: Denies change in vision - ENT Ears, Nose, Mouth, and Throat: Denies sore throat - Cardiovascular Cardiovascular: Denies chest pain, Reports dyspnea, Reports pedal edema - Respiratory Respiratory: No cough, Yes dyspnea, No coughing up blood - Gastrointestinal Gastrointestingal: Denies: abdominal pain - Musculoskeletal Musculoskeletal: Reports joint pain - Integumentary/Breasts Skin/Breast: Denies rash, Reports other (skin changes lt heel) - Neurologic Neurologic: Denies seizure-like activity Physical Exam - General General appearance: in no apparent distress - Head Head exam: normocephalic - Eye Eye exam: Present: PERRL, EOMI - ENT ENT exam: Present: mucous membranes dry - Neck Neck exam: Present: trachea midline - Respiratory Respiratory exam: Present: other (dec bs bilat ). Absent: respiratory distress - Cardiovascular Cardiovascular exam: Present: regular rate, systolic murmur - Abdominal Exam Abdominal exam: Present: soft - Extremities Exam Extremities exam: Present: pedal edema - Neurological Exam Neurological exam: Present: alert, oriented X3, CN II-XII intact - Skin Skin exam: Present: other (decubitus lt heel)
[2017-09-25 07:49] LABS: T4 (Thyroxine) 12.5 ug/dl (4.7-13.3); Thyroid Stimulating Hormone 4.41 uIU/ml (0.358-3.740)
--- NOTE | 2017-09-25 09:49 | Cardiology Report ---
PROCEDURE: INDICATIONS FOR THE TEST: Chest pain COPD Heart Murmur Tobacco Smoking Palpitations Fatigue Syncope Edema Hypertension Diabetes Mellitus Rheumatic Fever SOBXDOE ObesityXHyperlipidemia Family History HD Additional History CHF PATIENT INFORMATION HEIGHT: 68 WEIGHT:160 GENDER: Male B/P:178/80 2-D/M-MODE INTERPRETATION: 2-D MEASUREMENTS OBSERVED VALUES IN CMS Right Ventricular Dimension (RVDd) 1.6 Interventricular Septum (Thickness)(IVsd) .9 Left Ventricular Internal Dimensions(LVIDd) 3.7 Left Ventricular Posterior Wall (Thickness)(LVPWd) 1.2 Aortic Root 3.4 Aortic Cusp Separation 1.9 Left Atrial Dimensions (LAD) 3.6 2D 1. Left atrium is qualitatively moderately enlarged, left ventricle is normal size, there is mild concentric left ventricular hypertrophy, visually estimated ejection fraction 50%, there is moderate hypokinesis involving the basal septum and inferobasal wall. 2. The right atrium and right ventricle are qualitatively mildly enlarged with normal contractility. 3. The aortic valve is thickened and calcified leaflet continue to display mobility. 4. The mitral valve has mitral calcification. 5. The tricuspid valve is grossly normal. 6. The pulmonic valve is poorly visualized. 7. There is trivial pericardial effusion and left-sided pleural effusion seen. DOPPLER INTERROGATION: Doppler interrogation of the aortic, mitral and tricuspid valvular presence of mild mitral and tricuspid regurgitation, calculated right ventricular systolic pressure 68 mmHg consistent with moderate pulmonary hypertension, grade 1 diastolic dysfunction seen with tissue Doppler evidence of raised left atrial pressure. CONCLUSION: 1. Qualitatively moderately enlarged left atrium, normal left ventricular size, mild concentric left ventricular hypertrophy, visually estimated ejection fraction 50% with segmental wall motion abnormality described above, grade 1 diastolic dysfunction seen with tissue Doppler evidence of raised left atrial pressure. 2. Thickened and calcified aortic valve without Doppler evidence of aortic stenosis or aortic insufficiency 3. Mild mitral and tricuspid regurgitation, calculated right ventricular systolic pressure is 68 mmHg consistent moderate pulmonary hypertension. 4. Trivial pericardial effusion and large left-sided pleural effusion seen.
--- NOTE | 2017-09-25 09:58 | Consult Report ---
History of Present Illness Consult date: 09/25/17 Requesting physician: Zuleyma Basilio Consult reason: shortness of breath Chief complaint: SOA Additional Medical History:: 1. DM, diagnosed about 2006 A. untreated since 2009 after of 2. Second hand smoke exposure from A. Suspected COPD 3. HTN 4. Hyperlipidemia 5. Elevated troponins/NSTEMI, 05/19/2017 A. Bilateral pneumonia B. Echo, normal LVEF C. LHC with LAD KARI, 04/2017. DAPT. Multivessel remaining disease for which medical therapy recommended. 6. History of elevated LFT's A. History of liver biopsy B. No ETOH use 7. History of medication noncompliance History of present illness: 77-year-old white male with known coronary artery disease and previous non-ST elevation NV in April 2017 at which time the patient underwent cardiac catheterization with subsequent stenting of his LAD and recommendation for medical therapy for the remaining coronary artery disease. Patient is coming by his son today who relates a 2 week history of increasing shortness of breath. Evaluation in the emergency room reveals normal troponins with elevated BNP and chest x-ray evidence of congestive heart failure. Echocardiogram shows preserved ejection fraction with evidence of diastolic dysfunction. Patient has been admitted with cardiology consulted for congestive heart failure management. Patient was last seen in the office in May 2017 and has failed to follow- up with us since then. [facility] History Medical History: Reports:: Congestive Heart Failure, Diabetes Mellitus Type 2, Hyperlipidemia Denies:: Cancer, Diabetes Mellitus Type 1, MRSA Other Medical History: Reports: Cataracts Other Surgeries: Yes: Angiogram, Appendectomy, Cancer Surgery (SKIN CA SURGERY) , Coronary Stent Amputation: No Fractures: No - *Social History Smoking Status: Former smoker Alcohol Intake: never Occupational Status: retired, disabled Household Members: none - Psychiatric History Expresses thoughts of harming self/others: None Suicide Plan Description: No Plan *Family Hx:: Diabetes Meds Home Medications Medication Instructions Recorded Confirmed Type Aspirin [Aspirin 81mg EC Tab] 81 mg PO DAILY 07/20/17 09/25/17 History Atorvastatin Calcium [Atorvastatin 40 mg PO HS 07/20/17 09/25/17 History 40mg Tab] Cholecalciferol (Vitamin D3) 5,000 unit PO DAILY 07/20/17 09/25/17 History [Vitamin D3] Clopidogrel Bisulfate [Plavix 75mg 75 mg PO DAILY 07/20/17 09/25/17 History Tab] Cyanocobalamin/Folic Acid [Vitamin 1 each PO DAILY 07/20/17 09/25/17 History Y53-Iecon Acid Tablet] Furosemide [Furosemide 40MG tAB] 40 mg PO DAILY 07/20/17 09/25/17 History Gabapentin [Gabapentin 400mg Cap] 400 mg PO TID 07/20/17 09/25/17 History Ibuprofen [Ibuprofen 600mg Tab] 600 mg PO QID PRN 07/20/17 09/25/17 History Irbesartan 75 mg PO DAILY 07/20/17 09/25/17 History Metformin HCl [Metformin 500mg 500 mg PO BID 07/20/17 09/25/17 History Tablet] Metoprolol Tartrate [Lopressor 25 mg PO BID 07/20/17 09/25/17 History 25mg tablet] Pantoprazole Sodium [Protonix 40mg 40 mg PO DAILY 07/20/17 09/25/17 History tablet] Pioglitazone HCl 30 mg PO DAILY 07/20/17 09/25/17 History Allergies Allergy/AdvReac Type Severity Reaction Status Date / Time No Known Allergies Allergy Verified 07/20/17 22:04 Review of Systems - *Cardiovascular Reports shortness of breath, Reports shortness of breath with activity, Denies chest pain - *Respiratory Reports shortness of breath, Reports shortness of breath with activity - *Gastrointestinal Denies abdominal pain - *Genitourinary Denies difficulty urinating - *Neurologic Denies seizure-like activity Exam Vital signs and Labs for Last 24 Hours: Temp Pulse Resp BP Pulse Ox 97.7 F 87 20 111/89 92 L 09/25/17 06:14 09/25/17 06:53 09/25/17 06:14 09/25/17 06:14 09/25/17 06:14 - *Routine Neck Exam Comments: Difficult to examine adequately due to accessory muscle use. - *Routine Respiratory Exam Present: rales, diminished air movement - *Routine Cardiovascular Exam Present: RRR - *Routine Extremities Exam Comments: Bilateral lower extremity edema up into the shins. 2+ edema noted. - *Routine Neurological Exam Present: alert, oriented X3, moving all extremities Assessment and Plan (1) Congestive heart failure Current visit: Yes Status: Acute Qualifiers: Heart failure type: unspecified Heart failure chronicity: acute on chronic Qualified Code(s): I50.9 - Heart failure, unspecified Category: Medical Code(s): I50.9 - Heart failure, unspecified (2) Community acquired pneumonia Current visit: Yes Status: Acute Qualifiers: Laterality: unspecified laterality Qualified Code(s): J18.9 - Pneumonia, unspecified organism Category: Medical Code(s): J18.9 - Pneumonia, unspecified organism (3) CAD (coronary artery disease) Current visit: No Status: Chronic Category: Medical Code(s): I25.10 - Atherosclerotic heart disease of [place] coronary artery without angina pectoris (4) Type 2 diabetes mellitus Current visit: No Status: Chronic Category: Medical Code(s): E11.9 - Type 2 diabetes mellitus without complications - Assessment and plan all Dx Assessment and Plan for all problems:: There is some question of medication noncompliance, therefore will restart beta- pernell and ARB therapy along with diuretics intravenously. We will also add nitroglycerin paste and continue to monitor serial cardiac enzymes. This appears to be diastolic congestive heart failure this point. Patient does have evidence of pneumonia on chest x-ray which Dr. Basilio will be treating.
--- NOTE | 2017-09-25 10:36 | History & Physical Report ---
*Admission Date: 09/25/17 *Chief complaint: SOA *History of present illness: Mr. Ceron is a 77-year-old white male with known coronary artery disease and previous non-ST elevation IN in April 2017 at which time the patient underwent cardiac catheterization with subsequent stenting of his LAD and recommendation for medical therapy for the remaining coronary artery disease. He presented to the ER today with a 2 week history of increasing shortness of breath. Evaluation in the emergency room revealed normal troponins with an elevated BNP and chest x-ray evidence of congestive heart failure and a pneumonia. An echocardiogram showed preserved ejection fraction with evidence of diastolic dysfunction. He was admitted with a cardiology consulted for congestive heart failure management and for IV abx for his pneumonia. Of note, I have spoken with the patient's son and he has been noncompliant with his medications. The patient states they make him sick to his stomach so he quit taking everything except for the pill for his leg pain. He does not have his medications with him and his other son has gone to get them. [facility] History Medical History: Reports:: Congestive Heart Failure, Diabetes Mellitus Type 2, Hyperlipidemia Denies:: Cancer, Diabetes Mellitus Type 1, MRSA Other Medical History: Reports: Cataracts Other Surgeries: Yes: Angiogram, Appendectomy, Cancer Surgery (SKIN CA SURGERY) , Coronary Stent Amputation: No Fractures: No - *Social History Smoking Status: Former smoker Alcohol Intake: never Occupational Status: retired, disabled Household Members: none - Psychiatric History Expresses thoughts of harming self/others: None Suicide Plan Description: No Plan *Family Hx:: Diabetes Review of Systems - Constitutional Reports body ache(s), Reports chills, Reports fever(s) - Eyes Denies blurry vision, Denies double vision - ENT Reports nasal congestion, Reports sore throat - *Cardiovascular Reports chest pain, Denies rapid, pounding, or irregular heartbeat - *Respiratory Reports cough, Reports shortness of breath - *Gastrointestinal Reports abdominal pain (bloating), Reports loose stools, Reports nausea, Denies vomiting - *Genitourinary Denies difficulty urinating, Denies painful urination - *Musculoskeletal Reports joint pain (back) - *Neurologic Reports headache(s), Reports weakness, Denies seizure-like activity Meds Home Medications Medication Instructions Recorded Confirmed Type Aspirin [Aspirin 81mg EC Tab] 81 mg PO DAILY 07/20/17 09/25/17 History Atorvastatin Calcium [Atorvastatin 40 mg PO HS 07/20/17 09/25/17 History 40mg Tab] Cholecalciferol (Vitamin D3) 5,000 unit PO DAILY 07/20/17 09/25/17 History [Vitamin D3] Clopidogrel Bisulfate [Plavix 75mg 75 mg PO DAILY 07/20/17 09/25/17 History Tab] Cyanocobalamin/Folic Acid [Vitamin 1 each PO DAILY 07/20/17 09/25/17 History J07-Guunf Acid Tablet] Furosemide [Furosemide 40MG tAB] 40 mg PO DAILY 07/20/17 09/25/17 History Gabapentin [Gabapentin 400mg Cap] 400 mg PO TID 07/20/17 09/25/17 History Ibuprofen [Ibuprofen 600mg Tab] 600 mg PO QID PRN 07/20/17 09/25/17 History Irbesartan 75 mg PO DAILY 07/20/17 09/25/17 History Metformin HCl [Metformin 500mg 500 mg PO BID 07/20/17 09/25/17 History Tablet] Metoprolol Tartrate [Lopressor 25 mg PO BID 07/20/17 09/25/17 History 25mg tablet] Pantoprazole Sodium [Protonix 40mg 40 mg PO DAILY 07/20/17 09/25/17 History tablet] Pioglitazone HCl 30 mg PO DAILY 07/20/17 09/25/17 History Allergies Allergy/AdvReac Type Severity Reaction Status Date / Time No Known Allergies Allergy Verified 07/20/17 22:04 Exam Vital signs and Labs for Last 24 Hours: Temp Pulse Resp BP Pulse Ox 98.4 F 82 20 174/97 96 09/25/17 10:11 09/25/17 10:11 09/25/17 10:11 09/25/17 10:11 09/25/17 10:10 Lab Results 09/25/17 06:20: WBC 4.7 L, RBC 3.52 L, Hgb 11.2 L, Hct 36.2 L, MCV 102.8 H, MCH 31.8 H, MCHC 31.0 L, RDW 13.7, Plt Count 174, MPV 9.7, Neut % (Auto) 50.5, Lymph % (Auto) 37.5, [place] % (Auto) 9.2, Eos % (Auto) 2.2, Baso % (Auto) 0.5, Neut # (Auto) 2.4, Lymph # (Auto) 1.8, [place] # (Auto) 0.4, Eos # (Auto) 0.1, Baso # (Auto) 0.0 09/25/17 06:20: Sodium 138, Potassium 3.6, Chloride 102, Carbon Dioxide 34 H, Anion Gap 5.6, BUN 23 H, Creatinine 0.94, Estimated Creat Clear 65, Estimated GFR 78, Est GFR ( Amer) 94, Glucose 286 H 09/25/17 06:20: B-Natriuretic Peptide 610 H 09/25/17 06:20: Total Creatine Kinase 159, CK-MB (CK-2) 4.7 H, CK-MB (CK-2) Rel Index 3.0, Troponin I 0.03, TSH 4.41 H, Thyroxine (T4) 12.5 09/25/17 09:27: Lactic Acid 2.7 H Microbiology Results 09/25/17 09:27 Blood Blood Culture - Pending 09/25/17 09:27 Blood Blood Culture - Pending - Constitutional no acute distress - *Routine HEENT Exam Head: Present: normocephalic, atraumatic Eye: Present: EOMI, PERRL ENT: Present: mucous membranes dry - *Routine Neck Exam Present: supple, full ROM - *Routine Respiratory Exam Present: rales (bibasilar) - *Routine Cardiovascular Exam Present: RRR - *Routine Abdominal Exam Present: soft, normoactive bowel sounds. Absent: tenderness - *Routine Extremities Exam Present: edema - *Routine Skin Exam Present: intact - *Routine Neurological Exam Present: alert, oriented X3 H&P: Result - Impressions CXR - CHF with right lower lobe pneumonia with small effusion Echo 1. Qualitatively moderately enlarged left atrium, normal left ventricular size, mild concentric left ventricular hypertrophy, visually estimated ejection fraction 50% with segmental wall motion abnormality described above, grade 1 diastolic dysfunction seen with tissue Doppler evidence of raised left atrial pressure. 2. Thickened and calcified aortic valve without Doppler evidence of aortic stenosis or aortic insufficiency 3. Mild mitral and tricuspid regurgitation, calculated right ventricular systolic pressure is 68 mmHg consistent moderate pulmonary hypertension. 4. Trivial pericardial effusion and large left-sided pleural effusion seen. Assessment and Plan (1) Congestive heart failure Current visit: Yes Status: Acute Qualifiers: Heart failure type: unspecified Heart failure chronicity: acute on chronic Qualified Code(s): I50.9 - Heart failure, unspecified Category: Medical Code(s): I50.9 - Heart failure, unspecified (2) Community acquired pneumonia Current visit: Yes Status: Acute Qualifiers: Laterality: unspecified laterality Qualified Code(s): J18.9 - Pneumonia, unspecified organism Category: Medical Code(s): J18.9 - Pneumonia, unspecified organism (3) CAD (coronary artery disease) Current visit: No Status: Chronic Category: Medical Code(s): I25.10 - Atherosclerotic heart disease of [place] coronary artery without angina pectoris (4) Type 2 diabetes mellitus Current visit: No Status: Chronic Category: Medical Code(s): E11.9 - Type 2 diabetes mellitus without complications (5) Medically noncompliant Current visit: Yes Status: Acute Category: Medical Code(s): Z91.19 - Patient's noncompliance with other medical treatment and regimen (6) Elevated lactic acid level Current visit: Yes Status: Acute Category: Medical Code(s): R79.89 - Other specified abnormal findings of blood chemistry - Assessment and plan all Dx Assessment and Plan for all problems:: Cardiology has seen the patient, see their note. Will continue IV abx and await a sputum cx.
[2017-09-26 06:58] LABS: Anion Gap 7.8 mEq/L (5-15); Potassium 3.8 mmoL/L (3.5-5.1)
--- NOTE | 2017-09-26 07:38 | Pharmacy Consult Notes ---
[facility] Pharmacy VTE Monitoring - Patient Demographics Admission date: 09/25/17 Report Date: 09/26/17 Time: 07:38 Allergies/Adverse Reactions: Patient Allergies No Known Allergies Allergy (Verified 07/20/17 22:04) Height: 1.73 m Weight: 80.484 kg Patient Problems: Current Active Problems Congestive heart failure (Acute) Community acquired pneumonia (Acute) Medically noncompliant (Acute) Elevated lactic acid level (Acute) - VTE Risk Labs: VTE Related Lab Results Hgb 11.2 g/dL (14.1-18.0) L 09/25/17 06:20 Hct 36.2 % (42.0-52.0) L 09/25/17 06:20 Plt Count 174 K/mm3 (142-424) 09/25/17 06:20 BUN 35 mg/dL (7-18) H D 09/26/17 06:14 Creatinine 1.31 mg/dL (0.70-1.30) H D 09/26/17 06:14 Estimated Creat Clear 55 mL/min (0-300) 09/26/17 06:14 Was VTE Risk Assessment Performed: Yes VTE Score: 3 VTE Risk Level: Low Risk Clinical Trial Participant: No - Prophylaxis VTE Prophylaxis Ordered?: Yes Types of VTE Prophylaxis: TEDS Knee High
--- NOTE | 2017-09-26 08:27 | Progress Note ---
Internal Medicine - PN: Subj *Date: 09/26/17 *Time: 08:24 Interval history: Patient states he is feeling much better today. His shortness of breath has almost resolved. He is able to lay flat and slept great all night. He has not eaten breakfast yet this morning. He denies any pain. Exam Vital signs and Labs for Last 24 Hours: Temp Pulse Resp BP Pulse Ox 98.2 F 65 18 114/46 96 09/26/17 07:42 09/26/17 07:42 09/26/17 07:42 09/26/17 07:42 09/26/17 07:42 Laboratory Results - last 24 hr 09/25/17 11:14: Total Creatine Kinase 140, CK-MB (CK-2) 4.9 H, CK-MB (CK-2) Rel Index 3.5, Troponin I 0.02 09/25/17 13:40: Lactic Acid Fup @ 4Hr 2.4 H 09/25/17 16:05: Lactic Acid Fup @ 2Hr 2.1 H 09/25/17 17:05: Total Creatine Kinase 149, CK-MB (CK-2) 4.4 H, CK-MB (CK-2) Rel Index 3.0, Troponin I 0.02 09/26/17 06:14: Sodium 137, Potassium 3.8, Chloride 100, Carbon Dioxide 33 H, Anion Gap 7.8, BUN 35 H D, Creatinine 1.31 H D, Estimated Creat Clear 55, Estimated GFR 53 L, Est GFR ( Amer) 64 D, Glucose 364 H D I & O for Last 24 hours: Intake & Output 09/23/17 09/24/17 09/25/17 09/26/17 11:59 11:59 11:59 11:59 Intake Total 840 / 840 Output Total 950 / 950 Balance -110 / -110 Weight 177 lb 177 lb 7 oz - Constitutional no acute distress - *Routine Respiratory Exam Present: rales (bibasilar) - *Routine Cardiovascular Exam Present: RRR - *Routine Abdominal Exam Present: soft, normoactive bowel sounds. Absent: tenderness - *Routine Extremities Exam Absent: edema Assessment and Plan (1) Congestive heart failure Current visit: Yes Status: Acute Qualifiers: Heart failure type: unspecified Heart failure chronicity: acute on chronic Qualified Code(s): I50.9 - Heart failure, unspecified Category: Medical Code(s): I50.9 - Heart failure, unspecified (2) Community acquired pneumonia Current visit: Yes Status: Acute Qualifiers: Laterality: unspecified laterality Qualified Code(s): J18.9 - Pneumonia, unspecified organism Category: Medical Code(s): J18.9 - Pneumonia, unspecified organism (3) CAD (coronary artery disease) Current visit: No Status: Chronic Category: Medical Code(s): I25.10 - Atherosclerotic heart disease of [place] coronary artery without angina pectoris (4) Type 2 diabetes mellitus Current visit: No Status: Chronic Category: Medical Code(s): E11.9 - Type 2 diabetes mellitus without complications (5) Medically noncompliant Current visit: Yes Status: Acute Category: Medical Code(s): Z91.19 - Patient's noncompliance with other medical treatment and regimen (6) Elevated lactic acid level Current visit: Yes Status: Acute Category: Medical Code(s): R79.89 - Other specified abnormal findings of blood chemistry - Assessment and plan all Dx Assessment and Plan for all problems:: Awaiting blood cultures. He has not been able to provide a sputum. His edema has improved as have the rales in his lungs. His shortness of breath has improved. Will discuss further care with Dr. kwong.
--- NOTE | 2017-09-26 09:10 | Progress Note ---
Subjective Date: 09/26/17 Time: 09:07 Principal diagnosis: CHF, pneumonia Interval history: 77 yo WM lieing almost flat in bed sleeping initially. States he slept well. No chest pain and breathing is significantly improved disproportionately to urine output. BP controlled Exam Vital signs and Labs for Last 24 Hours: Temp Pulse Resp BP Pulse Ox 98.2 F 65 18 114/46 96 09/26/17 07:42 09/26/17 07:42 09/26/17 07:42 09/26/17 07:42 09/26/17 07:42 Laboratory Results - last 24 hr 09/25/17 11:14: Total Creatine Kinase 140, CK-MB (CK-2) 4.9 H, CK-MB (CK-2) Rel Index 3.5, Troponin I 0.02 09/25/17 13:40: Lactic Acid Fup @ 4Hr 2.4 H 09/25/17 16:05: Lactic Acid Fup @ 2Hr 2.1 H 09/25/17 17:05: Total Creatine Kinase 149, CK-MB (CK-2) 4.4 H, CK-MB (CK-2) Rel Index 3.0, Troponin I 0.02 09/26/17 06:14: Sodium 137, Potassium 3.8, Chloride 100, Carbon Dioxide 33 H, Anion Gap 7.8, BUN 35 H D, Creatinine 1.31 H D, Estimated Creat Clear 55, Estimated GFR 53 L, Est GFR ( Amer) 64 D, Glucose 364 H D I & O for Last 24 hours: Intake & Output 09/23/17 09/24/17 09/25/17 09/26/17 11:59 11:59 11:59 11:59 Intake Total 840 / 840 Output Total 950 / 950 Balance -110 / -110 Weight 177 lb 177 lb 7 oz - *Routine Respiratory Exam Comments: Rales improved. Rhonchi noted right base. - *Routine Cardiovascular Exam Present: RRR - *Routine Extremities Exam Present: edema Progress Note: A&P (1) Congestive heart failure Status: Acute Assessment and plan: Negative fluid balance by I/O with slight increase in BUN/Cr with IV diuretics. Symptoms significantly better. OK to switch to PO lasix. Current Visit: Yes (2) Community acquired pneumonia Status: Acute Current Visit: Yes (3) CAD (coronary artery disease) Status: Chronic Assessment and plan: Clinically stable. Current Visit: No (4) Type 2 diabetes mellitus Status: Chronic Current Visit: No (5) Medically noncompliant Status: Acute Current Visit: Yes (6) Elevated lactic acid level Status: Acute Current Visit: Yes Assessment and Plan for All Diagnoses:: Continue ASA 81 mg daily Plavix 75 mg daily switch to PO lasix 40 mg daily change metoprolol to succinate 50 mg qHS continue irbesartan 75 mg daily change NTG paste to isosorbide mononitrate 30 mg daily OK for discharge home from cardiology standpoint when ready.
--- NOTE | 2017-09-27 11:55 | Progress Note ---
Internal Medicine - PN: Subj *Date: 09/27/17 *Time: 11:48 Interval history: He states he does not feel all that well today. He is smiling however. He is not short of breath. His oxygen is off right now. 94% sat. He has that right pleural effusion that showed up on his chest x-ray and is mentioned on the echocardiogram as well. He has decreased breath sounds on the right side and some rales on the left. He has some leg edema despite YULI stockings. Exam Vital signs and Labs for Last 24 Hours: Temp Pulse Resp BP Pulse Ox 97.7 F 78 16 132/67 96 09/27/17 07:50 09/27/17 07:50 09/27/17 07:50 09/27/17 07:50 09/27/17 08:00 Laboratory Results - last 24 hr 09/26/17 10:30: Stl Aeromonas (PCR) Not detected, Stl C. cayetanensis PCR Not detected, Stool Rotavirus (PCR) Not detected, Stl Adenov F 40/41 PCR Not detected, Stool Astrovirus (PCR) Not detected, Stool Campylobacter PCR Not detected, Stl C.difficile Tox PCR Not detected, Stool Cryptosporidium PCR Not detected, Stl E.coli Shiga Tox PCR Not detected, Stool E coli O157 PCR Not detected, Stl Enterotoxigenic E PCR Not detected, Stool EPEC (PCR) Not detected , Stool EAEC (PCR) Not detected, Stl E. histolytica PCR Not detected, Stool Giardia Lamblia PCR Not detected, Stool Salmonella PCR Not detected, Stool Sapovirus (PCR) Not detected, Stl P. shigelloides PCR Not detected, Stl Shigella /EIEC PCR Not detected, St Y.enterocolitica PCR Not detected, Stool Vibrio (PCR ) Not detected, Stl Vibrio cholerae PCR Not detected, Stl Norovirus GI/GII PCR Not detected I & O for Last 24 hours: Intake & Output 09/24/17 09/25/17 09/26/17 09/27/17 11:59 11:59 11:59 11:59 Intake Total 960 / 960 960 / 960 Output Total 950 / 950 950 / 950 Balance Weight 177 lb 176 lb 176 lb 1 oz - Constitutional no acute distress - *Routine HEENT Exam ENT: Present: mucous membranes moist - *Routine Respiratory Exam Comments: No respiratory distress. Moving air well. Does have some decreased breath sounds at the bases, more on the right than on the left. I hear some rales on the left. - *Routine Cardiovascular Exam Present: RRR - *Routine Extremities Exam Comments: 2+ edema - *Routine Neurological Exam Present: alert, oriented X3 Assessment and Plan (1) Congestive heart failure Current visit: Yes Status: Acute Qualifiers: Heart failure type: unspecified Heart failure chronicity: acute on chronic Qualified Code(s): I50.9 - Heart failure, unspecified Category: Medical Code(s): I50.9 - Heart failure, unspecified (2) Community acquired pneumonia Current visit: Yes Status: Acute Qualifiers: Laterality: unspecified laterality Qualified Code(s): J18.9 - Pneumonia, unspecified organism Category: Medical Code(s): J18.9 - Pneumonia, unspecified organism (3) CAD (coronary artery disease) Current visit: No Status: Chronic Category: Medical Code(s): I25.10 - Atherosclerotic heart disease of [place] coronary artery without angina pectoris (4) Type 2 diabetes mellitus Current visit: No Status: Chronic Category: Medical Code(s): E11.9 - Type 2 diabetes mellitus without complications (5) Medically noncompliant Current visit: Yes Status: Acute Category: Medical Code(s): Z91.19 - Patient's noncompliance with other medical treatment and regimen (6) Elevated lactic acid level Current visit: Yes Status: Acute Category: Medical Code(s): R79.89 - Other specified abnormal findings of blood chemistry - Assessment and plan all Dx Assessment and Plan for all problems:: IV Lasix was discontinued yesterday. He was receiving 40 mg twice a day. He was started on 40 mg a day p.o. Today I will give him an additional 20 mg IV. He is saline locked. Weights are reviewed. He will be here through the weekend. Perhaps we can discharge him Friday.
[2017-09-28 06:17] LABS: Basophils % 0.4 % (0.1-2.0); Eosinophils # 0.1 K/mm3 (0.0-0.4); Eosinophils % 1.5 % (0.1-12.0); Hematocrit 32.6 % (42.0-52.0); Hemoglobin 10.4 g/dL (14.1-18.0); Lymphocytes % 24.9 K/mm3 (10-50); Mean Corpuscular Hemoglobin 32.2 pg (27.0-31.2); Mean Corpuscular Volume 100.9 fl (80-94); Mean Platelet Volume 9.8 fl (7.4-10.4); Monocytes # 0.3 K/mm3 (0.1-1.0); Neutrophils # 2.6 K/mm3 (1.8-7.8); Neutrophils % 65.2 % (37.0-80.0); Platelet Count 161 K/mm3 (142-424); Red Blood Count 3.23 M/mm3 (4.60-6.20); Red Cell Distribution Width 13.9 % (11.5-17.5); White Blood Count 4.1 K/mm3 (4.8-10.8)
[2017-09-28 06:34] LABS: Anion Gap 5.9 mEq/L (5-15); Potassium 3.9 mmoL/L (3.5-5.1)
--- NOTE | 2017-09-28 10:08 | Progress Note ---
Internal Medicine - PN: Subj *Date: 09/28/17 *Time: 10:06 Interval history: He seems clinically stable. He still has decreased breath sounds on the right. Chest x-ray will be repeated. Perhaps he can be discharged tomorrow. Exam Vital signs and Labs for Last 24 Hours: Temp Pulse Resp BP Pulse Ox 97.2 F L 72 16 170/72 94 L 09/28/17 08:00 09/28/17 08:00 09/28/17 08:00 09/28/17 08:00 09/28/17 08:00 Laboratory Results - last 24 hr 09/27/17 11:49: POC Glucose 231 09/27/17 16:36: POC Glucose 103 09/27/17 21:14: POC Glucose 172 09/28/17 05:35: WBC 4.1 L, RBC 3.23 L, Hgb 10.4 L, Hct 32.6 L, MCV 100.9 H, MCH 32.2 H, MCHC 32.0, RDW 13.9, Plt Count 161, MPV 9.8, Neut % (Auto) 65.2, Lymph % (Auto) 24.9, [place] % (Auto) 8.0, Eos % (Auto) 1.5, Baso % (Auto) 0.4, Neut # ( Auto) 2.6, Lymph # (Auto) 1.0, [place] # (Auto) 0.3, Eos # (Auto) 0.1, Baso # (Auto ) 0.0 09/28/17 05:35: Sodium 138, Potassium 3.9, Chloride 101, Carbon Dioxide 35 H, Anion Gap 5.9, BUN 44 H D, Creatinine 1.29, Estimated Creat Clear 55, Estimated GFR 54 L, Est GFR ( Amer) 66, Glucose 139 H 09/28/17 06:27: POC Glucose 144 I & O for Last 24 hours: Intake & Output 09/25/17 09/26/17 09/27/17 09/28/17 11:59 11:59 11:59 11:59 Intake Total 960 / 960 960 / 960 740 / 740 Output Total 950 / 950 950 / 950 625 / 625 Balance 115 / 115 Weight 177 lb 176 lb 176 lb 1 oz 172 lb 6 oz - Constitutional no acute distress - *Routine Respiratory Exam Comments: Decreased breath sounds in the right base. Few left basilar rales. - *Routine Extremities Exam Comments: Trace leg edema. Assessment and Plan (1) Congestive heart failure Current visit: Yes Status: Acute Qualifiers: Heart failure type: unspecified Heart failure chronicity: acute on chronic Qualified Code(s): I50.9 - Heart failure, unspecified Category: Medical Code(s): I50.9 - Heart failure, unspecified (2) Community acquired pneumonia Current visit: Yes Status: Acute Qualifiers: Laterality: unspecified laterality Qualified Code(s): J18.9 - Pneumonia, unspecified organism Category: Medical Code(s): J18.9 - Pneumonia, unspecified organism (3) CAD (coronary artery disease) Current visit: No Status: Chronic Category: Medical Code(s): I25.10 - Atherosclerotic heart disease of [place] coronary artery without angina pectoris (4) Type 2 diabetes mellitus Current visit: No Status: Chronic Category: Medical Code(s): E11.9 - Type 2 diabetes mellitus without complications (5) Medically noncompliant Current visit: Yes Status: Acute Category: Medical Code(s): Z91.19 - Patient's noncompliance with other medical treatment and regimen (6) Elevated lactic acid level Current visit: Yes Status: Acute Category: Medical Code(s): R79.89 - Other specified abnormal findings of blood chemistry - Assessment and plan all Dx Assessment and Plan for all problems:: Chest x-ray
--- NOTE | 2017-09-29 09:29 | Progress Note ---
Internal Medicine - PN: Subj *Date: 09/29/17 *Time: 09:25 Interval history: Patient states he would just like to . Does not feel well. He is eating very little because he is afraid he will have more diarrhea. He is incontinent of stool. He voids QS. He denies chest pain. He states that shortness of breath has improved since being admitted. He did sit up in a chair yesterday. Exam Vital signs and Labs for Last 24 Hours: Temp Pulse Resp BP Pulse Ox 98.2 F 82 18 147/60 98 09/29/17 07:59 09/29/17 07:59 09/29/17 07:59 09/29/17 07:59 09/29/17 07:59 Laboratory Results - last 24 hr 09/28/17 10:54: POC Glucose 225 09/28/17 15:59: POC Glucose 162 09/28/17 21:23: POC Glucose 190 I & O for Last 24 hours: Intake & Output 09/26/17 09/27/17 09/28/17 09/29/17 11:59 11:59 11:59 11:59 Intake Total 960 / 960 960 / 960 740 / 740 673 / 673 Output Total 950 / 950 950 / 950 625 / 625 400 / 400 Balance 115 / 115 273 / 273 Weight 176 lb 176 lb 1 oz 172 lb 6 oz 178 lb Radiology Reports for the Last 24 Hours: 09/28/2017 chest x-ray IMPRESSION: Diffuse right lower lobe pneumonia with small reactive pleural effusion - Constitutional no acute distress - *Routine Respiratory Exam Comments: . Very decreased breath sounds in right base. - *Routine Cardiovascular Exam Present: RRR - *Routine Abdominal Exam Present: soft, normoactive bowel sounds, distended. Absent: tenderness - *Routine Extremities Exam Absent: edema, calf tenderness - *Routine Skin Exam Present: wounds (Open left heel) - *Routine Neurological Exam Present: alert - Routine Psychiatric Exam Present: depressed Assessment and Plan (1) Congestive heart failure Current visit: Yes Status: Acute Qualifiers: Heart failure type: unspecified Heart failure chronicity: acute on chronic Qualified Code(s): I50.9 - Heart failure, unspecified Category: Medical Code(s): I50.9 - Heart failure, unspecified (2) Community acquired pneumonia Current visit: Yes Status: Acute Qualifiers: Laterality: unspecified laterality Qualified Code(s): J18.9 - Pneumonia, unspecified organism Category: Medical Code(s): J18.9 - Pneumonia, unspecified organism (3) CAD (coronary artery disease) Current visit: No Status: Chronic Category: Medical Code(s): I25.10 - Atherosclerotic heart disease of [place] coronary artery without angina pectoris (4) Type 2 diabetes mellitus Current visit: No Status: Chronic Category: Medical Code(s): E11.9 - Type 2 diabetes mellitus without complications (5) Medically noncompliant Current visit: Yes Status: Acute Category: Medical Code(s): Z91.19 - Patient's noncompliance with other medical treatment and regimen (6) Elevated lactic acid level Current visit: Yes Status: Acute Category: Medical Code(s): R79.89 - Other specified abnormal findings of blood chemistry (7) Depression Current visit: Yes Status: Acute Category: Medical Code(s): F32.9 - Major depressive disorder, single episode, unspecified (8) Open wound of left heel Current visit: Yes Status: Acute Category: Medical Code(s): S91.302A - Unspecified open wound, left foot, initial encounter - Assessment and plan all Dx Assessment and Plan for all problems:: Wound care per nursing. Add duo nebs and chest physiotherapy
--- NOTE | 2017-09-29 09:49 | Progress Note ---
Internal Medicine - PN: Subj *Date: 09/29/17 *Time: 09:48 Exam Vital signs and Labs for Last 24 Hours: Temp Pulse Resp BP Pulse Ox 98.2 F 82 18 147/60 98 09/29/17 07:59 09/29/17 07:59 09/29/17 07:59 09/29/17 07:59 09/29/17 07:59 Laboratory Results - last 24 hr 09/28/17 10:54: POC Glucose 225 09/28/17 15:59: POC Glucose 162 09/28/17 21:23: POC Glucose 190 I & O for Last 24 hours: Intake & Output 09/26/17 09/27/17 09/28/17 09/29/17 23:59 23:59 23:59 23:59 Intake Total 1080 / 1080 720 / 720 693 / 693 240 / 240 Output Total 450 / 450 1125 / 1125 400 / 400 Balance 630 / 630 -405 / -405 293 / 293 240 / 240 Weight 79.832 kg 79.861 kg 78.188 kg 80.739 kg Assessment and Plan (1) Congestive heart failure Current visit: Yes Status: Acute Qualifiers: Heart failure type: unspecified Heart failure chronicity: acute on chronic Qualified Code(s): I50.9 - Heart failure, unspecified Category: Medical Code(s): I50.9 - Heart failure, unspecified (2) Community acquired pneumonia Current visit: Yes Status: Acute Qualifiers: Laterality: unspecified laterality Qualified Code(s): J18.9 - Pneumonia, unspecified organism Category: Medical Code(s): J18.9 - Pneumonia, unspecified organism (3) CAD (coronary artery disease) Current visit: No Status: Chronic Category: Medical Code(s): I25.10 - Atherosclerotic heart disease of [place] coronary artery without angina pectoris (4) Type 2 diabetes mellitus Current visit: No Status: Chronic Category: Medical Code(s): E11.9 - Type 2 diabetes mellitus without complications (5) Medically noncompliant Current visit: Yes Status: Acute Category: Medical Code(s): Z91.19 - Patient's noncompliance with other medical treatment and regimen (6) Elevated lactic acid level Current visit: Yes Status: Acute Category: Medical Code(s): R79.89 - Other specified abnormal findings of blood chemistry (7) Depression Current visit: Yes Status: Acute Category: Medical Code(s): F32.9 - Major depressive disorder, single episode, unspecified (8) Open wound of left heel Current visit: Yes Status: Acute Category: Medical Code(s): S91.302A - Unspecified open wound, left foot, initial encounter The patient's infection will respond to the chosen ABx?: Yes Is the patient receiving the right drug, dose, and route?: Yes Could a more targeted ABx be ordered?: No
--- NOTE | 2017-09-30 08:45 | Progress Note ---
Internal Medicine - PN: Subj *Date: 09/30/17 *Time: 08:15 Interval history: Patient states he had a horrible night. He was incontinent of several diarrhea stools. He will not eat or drink anything today because of this. He denies shortness of breath and is not coughing. He has some abdominal discomfort but otherwise no pain. He ambulates to the bathroom. Disposition was discussed with patient. With care conference yesterday fpc was suggested. He adamantly refuses to go to a fpc. He wants to go home. Son is in the room from [place]. They are asking about a swing bed. This son would like to take his father home with him to [place] but patient refuses at this time. Exam Vital signs and Labs for Last 24 Hours: Temp Pulse Resp BP Pulse Ox 97.7 F 80 18 167/76 99 09/30/17 07:33 09/30/17 07:33 09/30/17 07:33 09/30/17 07:33 09/30/17 07:33 Laboratory Results - last 24 hr 09/29/17 06:23: POC Glucose 115 09/29/17 11:15: POC Glucose 146 09/29/17 16:40: POC Glucose 211 09/29/17 20:17: POC Glucose 220 09/30/17 05:58: POC Glucose 125 I & O for Last 24 hours: Intake & Output 09/27/17 09/28/17 09/29/17 09/30/17 11:59 11:59 11:59 11:59 Intake Total 960 / 960 740 / 740 673 / 673 540 / 540 Output Total 950 / 950 625 / 625 400 / 400 700 / 700 Balance 115 / 115 273 / 273 -160 / -160 Weight 176 lb 1 oz 172 lb 6 oz 178 lb 177 lb 9 oz - Constitutional no acute distress Comments: Appears to feel well. - *Routine Respiratory Exam Comments: Some scattered wheezing. Decreased breath sounds in the right base. - *Routine Cardiovascular Exam Present: RRR - *Routine Abdominal Exam Present: soft, normoactive bowel sounds, tenderness. Absent: distended - *Routine Extremities Exam Absent: edema, calf tenderness - *Routine Neurological Exam Present: alert, oriented X3 Assessment and Plan (1) Congestive heart failure Current visit: Yes Status: Acute Qualifiers: Heart failure type: unspecified Heart failure chronicity: acute on chronic Qualified Code(s): I50.9 - Heart failure, unspecified Category: Medical Code(s): I50.9 - Heart failure, unspecified (2) Community acquired pneumonia Current visit: Yes Status: Acute Qualifiers: Laterality: unspecified laterality Qualified Code(s): J18.9 - Pneumonia, unspecified organism Category: Medical Code(s): J18.9 - Pneumonia, unspecified organism (3) CAD (coronary artery disease) Current visit: No Status: Chronic Category: Medical Code(s): I25.10 - Atherosclerotic heart disease of [place] coronary artery without angina pectoris (4) Type 2 diabetes mellitus Current visit: No Status: Chronic Category: Medical Code(s): E11.9 - Type 2 diabetes mellitus without complications (5) Medically noncompliant Current visit: Yes Status: Acute Category: Medical Code(s): Z91.19 - Patient's noncompliance with other medical treatment and regimen (6) Elevated lactic acid level Current visit: Yes Status: Acute Category: Medical Code(s): R79.89 - Other specified abnormal findings of blood chemistry (7) Diarrhea Current visit: Yes Status: Acute Category: Medical Code(s): R19.7 - Diarrhea, unspecified - Assessment and plan all Dx Assessment and Plan for all problems:: will change meformin due to diarrhea; will stop lasix. Nebs are scheduled. Insurance will not approve a swing bed.
--- NOTE | 2017-10-01 07:52 | Progress Note ---
Internal Medicine - PN: Subj *Date: 10/01/17 *Time: 07:48 Interval history: Patient states he slept well. He also feels better. He has been able to eat a little. He has had no further diarrhea. He denies shortness of breath and chest pain. Exam Vital signs and Labs for Last 24 Hours: Temp Pulse Resp BP Pulse Ox 97.5 F L 85 20 137/54 97 10/01/17 07:45 10/01/17 07:45 10/01/17 07:45 10/01/17 07:45 10/01/17 07:45 Laboratory Results - last 24 hr 09/30/17 11:15: POC Glucose 147 09/30/17 16:17: POC Glucose 115 09/30/17 22:15: POC Glucose 215 10/01/17 05:48: POC Glucose 174 I & O for Last 24 hours: Intake & Output 09/28/17 09/29/17 09/30/17 10/01/17 11:59 11:59 11:59 11:59 Intake Total 740 / 740 673 / 673 540 / 540 480 / 480 Output Total 625 / 625 400 / 400 1100 / 1100 1100 / 1100 Balance 115 / 115 273 / 273 -560 / -560 -620 / -620 Weight 172 lb 6 oz 178 lb 177 lb 9 oz 173 lb 8 oz - Constitutional no acute distress Comments: Sitting on the bedside eating his breakfast. - *Routine Respiratory Exam Comments: Crackles in the left base decreased breath sounds on the right base - *Routine Cardiovascular Exam Present: RRR - *Routine Extremities Exam Absent: edema, calf tenderness - *Routine Neurological Exam Present: alert, oriented X3 Assessment and Plan (1) Congestive heart failure Current visit: Yes Status: Acute Qualifiers: Heart failure type: unspecified Heart failure chronicity: acute on chronic Qualified Code(s): I50.9 - Heart failure, unspecified Category: Medical Code(s): I50.9 - Heart failure, unspecified (2) Community acquired pneumonia Current visit: Yes Status: Acute Qualifiers: Laterality: unspecified laterality Qualified Code(s): J18.9 - Pneumonia, unspecified organism Category: Medical Code(s): J18.9 - Pneumonia, unspecified organism (3) CAD (coronary artery disease) Current visit: No Status: Chronic Category: Medical Code(s): I25.10 - Atherosclerotic heart disease of [place] coronary artery without angina pectoris (4) Type 2 diabetes mellitus Current visit: No Status: Chronic Category: Medical Code(s): E11.9 - Type 2 diabetes mellitus without complications (5) Medically noncompliant Current visit: Yes Status: Acute Category: Medical Code(s): Z91.19 - Patient's noncompliance with other medical treatment and regimen (6) Elevated lactic acid level Current visit: Yes Status: Acute Category: Medical Code(s): R79.89 - Other specified abnormal findings of blood chemistry (7) Diarrhea Current visit: Yes Status: Acute Category: Medical Code(s): R19.7 - Diarrhea, unspecified (8) Hypothyroidism Current visit: Yes Status: Acute Category: Medical Code(s): E03.9 - Hypothyroidism, unspecified - Assessment and plan all Dx Assessment and Plan for all problems:: Patient has improved. Possibly home today.
[2017-10-01 11:36] VITALS: BP 105/57
--- NOTE | 2017-10-01 14:23 | Discharge Summary ---
General - General Admission date: 09/25/17 Discharge date: 10/01/17 HPI HPI: Mr. Ceron is a 77-year-old white male with known coronary artery disease and previous non-ST elevation ID in April 2017 at which time the patient underwent cardiac catheterization with subsequent stenting of his LAD and recommendation for medical therapy for the remaining coronary artery disease. He presented to the ER today with a 2 week history of increasing shortness of breath. Evaluation in the emergency room revealed normal troponins with an elevated BNP and chest x-ray evidence of congestive heart failure and a pneumonia. An echocardiogram showed preserved ejection fraction with evidence of diastolic dysfunction. He was admitted with a cardiology consulted for congestive heart failure management and for IV abx for his pneumonia. Of note, I have spoken with the patient's son and he has been noncompliant with his medications. The patient states they make him sick to his stomach so he quit taking everything except for the pill for his leg pain. He does not have his medications with him and his other son has gone to get them. Hospital Course Hospital Course: The patient's CXR showed CHF with a RLL pneumonia. His echo showed an EF of 50 % and moderate pulmonary hypertension. Cardiology saw the patient and restarted his beta-pernell and ARB therapy along with diuretics intravenously. They also added nitroglycerin paste and continued to monitor serial cardiac enzymes. He was started on IV abx for his pneumonia. His SOA improved after the lasix and he was able to rest. Dr. Basilio discussed his depression and started him on sertraline and trazodone. His oxygen saturations improved. He was switched to PO lasix. He began having some SOA and his CXR showed a pleural effusion. He was given an additional dose of 20mg of IV lasix. He had some diarrhea, but his diarrhea panel was normal. A repeat CXR showed a RLL pneumonia with a reactive pleural effusion. Duonebs and chest physiotherapy were added. The patient continued not to feel well. He refused to eat and drink. A snf was discussed and he refused. The patient's family wanted to take him home with them to [place] and he refused. A swing bed was discussed but was not covered by his insurance. His metformin was discontinued d/t the diarrhea. His TSH was elevated and he was started on synthroid. The patient felt better by 10/01/17. He had no further diarrhea. His SOA resolved. He was stable to be discharged home. Cardiology felt he should continue ASA 81 mg daily, Plavix 75 mg daily, lasix 40 mg daily, metoprolol succinate 50 mg qHS, irbesartan 75 mg daily, and change NTG paste to isosorbide mononitrate 30 mg daily. Objective Vital signs: Temp Pulse Resp BP Pulse Ox 97.3 F L 59 L 20 105/57 95 10/01/17 11:36 10/01/17 11:36 10/01/17 11:36 10/01/17 11:36 10/01/17 11:36 Narrative: - Constitutional no acute distress - *Routine HEENT Exam Head: Present: normocephalic, atraumatic Eye: Present: EOMI, PERRL ENT: Present: mucous membranes dry - *Routine Neck Exam Present: supple, full ROM - *Routine Respiratory Exam Present: rales (bibasilar) - *Routine Cardiovascular Exam Present: RRR - *Routine Abdominal Exam Present: soft, normoactive bowel sounds. Absent: tenderness - *Routine Extremities Exam Present: edema - *Routine Skin Exam Present: intact - *Routine Neurological Exam Present: alert, oriented X3 Results Labs on day of discharge: Labs from last 24 hours 10/01/17 10/01/17 09/30/17 11:29 05:48 22:15 POC Glucose 206 174 215 09/30/17 16:17 POC Glucose 115 DS: Diagnosis - Discharge Diagnosis (1) Congestive heart failure Status: Acute (2) Community acquired pneumonia Status: Acute (3) CAD (coronary artery disease) Status: Chronic (4) Type 2 diabetes mellitus Status: Chronic (5) Medically noncompliant Status: Acute (6) Elevated lactic acid level Status: Acute Discharge Plan - Patient Discharge Instructions ACTIVITY: Continue current activity DIET: continue same diet Patient Instructions: Pneumonia-Adult, Heart Failure, Coronary Artery Disease - Follow up Plan Follow up with: Zuleyma Basilio MD [Staff Physician] - Disposition: Home Health Service Home Medications: Home Medications Medication Instructions Recorded Confirmed Type Aspirin [Aspirin 81mg EC Tab] 81 mg PO DAILY 07/20/17 09/25/17 History Atorvastatin Calcium [Atorvastatin 40 mg PO HS 07/20/17 09/25/17 History 40mg Tab] Cholecalciferol (Vitamin D3) 5,000 unit PO DAILY 07/20/17 09/25/17 History [Vitamin D3] Clopidogrel Bisulfate [Plavix 75mg 75 mg PO DAILY 07/20/17 09/25/17 History Tab] Cyanocobalamin/Folic Acid [Vitamin 1 each PO DAILY 07/20/17 09/25/17 History P01-Atkgc Acid Tablet] Furosemide [Furosemide 40MG tAB] 40 mg PO DAILY 07/20/17 09/25/17 History Ibuprofen [Ibuprofen 600mg Tab] 600 mg PO QIDP PRN 07/20/17 09/26/17 History Irbesartan 75 mg PO DAILY 07/20/17 09/25/17 History Metformin HCl [Metformin 500mg 500 mg PO BID 07/20/17 09/25/17 History Tablet] Metoprolol Tartrate [Lopressor 25 mg PO BID 07/20/17 09/25/17 History 25mg tablet] Pantoprazole Sodium [Protonix 40mg 40 mg PO DAILY 07/20/17 09/25/17 History tablet] Pioglitazone HCl 30 mg PO DAILY 07/20/17 09/25/17 History glipiZIDE [Glipizide ER] 10 mg PO BID 09/26/17 09/26/17 History Prescriptions/Medication Reconciliation: New Levothyroxine Sodium [Synthroid 25mcg (0.025mg) tablet] 25 mcg PO DAILYDM # 30 tablet Gabapentin [Neurontin 100mg cap] 200 mg PO TID #90 cap Continue Pioglitazone HCl 30 mg PO DAILY Irbesartan 75 mg PO DAILY Aspirin [Aspirin 81mg EC Tab] 81 mg PO DAILY Pantoprazole Sodium [Protonix 40mg tablet] 40 mg PO DAILY Cholecalciferol (Vitamin D3) [Vitamin D3] 5,000 unit PO DAILY Atorvastatin Calcium [Atorvastatin 40mg Tab] 40 mg PO HS Ibuprofen [Ibuprofen 600mg Tab] 600 mg PO QIDP PRN PRN Reason: As Needed For Fever Or Pain glipiZIDE [Glipizide ER] 10 mg PO BID Furosemide [Furosemide 40MG tAB] 40 mg PO DAILY Metoprolol Tartrate [Lopressor 25mg tablet] 25 mg PO BID Clopidogrel Bisulfate [Plavix 75mg Tab] 75 mg PO DAILY Metformin HCl [Metformin 500mg Tablet] 500 mg PO BID Cyanocobalamin/Folic Acid [Vitamin V98-Wlwbj Acid Tablet] 1 each PO DAILY Discontinued Gabapentin [Gabapentin 400mg Cap] 400 mg PO TID
== END 2017-10-01 12:30 | disposition home health service (06) ==
LOC: ER 06:12 → 2ND 06:12 → OBSVTOIN 09:34 → 2ND 10:45
PROVIDERS: ADMIT Family Medicine; ATTEND Family Medicine

== ENCOUNTER 2017-10-26 09:14 | Observation (INO) ==
--- NOTE | 2017-10-26 09:30 | Emergency Department Note ---
ED Disposition Clinical Impression: Congestive heart failure, Phimosis, Uncircumcised male, CAD (coronary artery disease), Diabetes, Diabetic ulcer of ankle, Anemia, Thrombocytopenia, Acute renal insufficiency, Medication side effect Disposition: Still a Patient Condition on Discharge: Fair Referrals: Zuleyma Basilio MD [Primary Care Provider] - Mike Starks MD [Staff Physician] - - Critical Care Critical Care Time: No Attestation: On 10/26/17, the high probability of a clinically significant, sudden or life threatening deterioration of the following system(s) required my full and direct attention, intervention and personal management. The time I documented below is in addition to time spent performing reported procedures but includes the following listed in this critical care notation. Medical Decision Making - Arturo Inquiry Pt receiving controlled substance: No Arturo was queried for this patient: No Vital Signs: 10/26/17 09:17 10/26/17 10:30 Temperature 97.4 F L Temperature Source Oral Pulse Rate [Right Brachial] 67 71 Respiratory Rate 22 22 Blood Pressure [Right Arm] 179/87 176/79 Blood Pressure Mean [Right Arm] 117 111 Blood Pressure Source [Right Arm] Automatic Cuff Automatic Cuff Blood Pressure Position [Right Arm] Sitting Sitting 02 Sat by Pulse Oximetry 97 99 Oxygen Delivery Method Room Air Nasal Cannula Oxygen Flow Rate (LPM) 2 - Lab Data Lab Results 10/26/17 09:45: WBC 3.9 L, RBC 3.25 L, Hgb 10.1 L, Hct 32.2 L, MCV 99.0 H, MCH 31.2, MCHC 31.5 L, RDW 13.9, Plt Count 237, MPV 9.3, Neut % (Auto) 66.6, Lymph % (Auto) 21.4, Cloud % (Auto) 9.7 H, Eos % (Auto) 1.8, Baso % (Auto) 0.5, Neut # (Auto) 2.6, Lymph # (Auto) 0.9, Cloud # (Auto) 0.4, Eos # (Auto) 0.1, Baso # ( Auto) 0.0 10/26/17 09:45: Sodium 140, Potassium 4.5, Chloride 103, Carbon Dioxide 30, Anion Gap 11.5, BUN 37 H, Creatinine 1.81 H, Estimated Creat Clear 45, Estimated GFR 37 L, Est GFR ( Amer) 44 L, Glucose 216 H, Calcium 9.3, Magnesium 2.2, Total Bilirubin 0.8, AST 34, ALT 24, Alkaline Phosphatase 230 H, Total Creatine Kinase 246, CK-MB (CK-2) 5.6 H D, CK-MB (CK-2) Rel Index 2.3, Troponin I < 0.02, Total Protein 6.8, Albumin 2.7 L, Globulin 4.1 H, Albumin/ Globulin Ratio 0.7 L 10/26/17 09:45: B-Natriuretic Peptide 605 H Result diagrams: 10/26/17 09:45 10/26/17 09:45 Orders (Tests/Meds): ED MEDICATIONS Generic Name Dose Route Start Last Admin Trade Name Freq PRN Reason Stop Dose Admin Nitroglycerin 0.5 gm 10/26/17 09:45 10/26/17 10:02 Nitroglycerin 1 Inch Oint Udp TD 11/25/17 09:44 0.5 gm Q6H VIGNESH Administration Discontinued Medications Generic Name Dose Route Start Last Admin Trade Name Freq PRN Reason Stop Dose Admin Furosemide 20 mg 10/26/17 09:55 10/26/17 10:01 Lasix 20mg/2ml Vial IV 10/26/17 09:56 20 mg ONCE ONE Administration ORDERS Category Date Time Status Lactic Acid Stat Lab 10/26/17 10:49 Ordered UA [Urinalysis and Microscopic] Stat Lab 10/26/17 10:03 Ordered ECG Request by /Nilesh Stat Y 10/26/17 09:37 Ordered - Radiology Data #1 Image(s): Chest Image Reviewed: Yes I reviewed the patient's radiology image Preliminary Findings: Abnormal Pulmonary vascular congestion with perihilar patchy infiltrates suggestive of early CHF, fluid in the right middle lobe for the fissure. - ECG Data Tracing #1 Normal sinus rhythm 71/min, baseline artifact especially in lead V1 and V2 with no acute findings unchanged from prior EKG done on July 20, 2017 and May 19, 2017. ECG initial impression date: 10/26/17 ECG initial impression time: 10:46 Medical Decision Narrative: The family requested Dr. basilio to care for him, I spoke with Dr. basilio and he said he took care of him only when he was a service patient during August 2017. I discussed with his sons Carlos and Mo about recommendations for transfer to a facility with nephrology service. Mr. Jorge Ceron refused transfer. He wants to be [facility] to the best of our ability. He is DO NOT RESUSCITATE status per his wishes and his sons are aware. Carlos his son told me that he has not been taking his Metformin due to nausea and it might need to be changed. I order lactic acid to his labs. I spoke with Dr. Wilder was evaluation assistant for unassigned patients who advised for the following, LR 75 an hour, Lasix, IV push and after 2 hours from IV fluids, hold Glucophage, medium intensity sliding scale, and scrotal elevation. General Adult HPI - General Stated complaint: swollen with fluid build up Time Seen by Provider: 10/26/17 09:28 - History of Present Illness HPI narrative: 77 years old white male with history of coronary artery disease, his last stent was in April 2017, congestive heart failure diabetes mellitus with complications of diabetic foot ulcers. For the past 2 weeks he has been experiencing progressive abdominal girth and 2 days ago he started having increase in his scrotum. He is getting more short of breath with lower chest tightness with exertional dyspnea. He denies chills cough productive sputum hemoptysis hematemesis chest pain or palpitations. Per his son Carlos he usually weighs around 180 pounds and he has weighed 202 pounds 2 days ago. Onset (ago): week(s) (2 weeks.) Location: chest, abdomen, genitals Radiation: non-radiation Consistency: constant, other (and progressive. ) Exacerbating factors: movement Associated symptoms: shortness of breath - Related Data Home Medications Medication Instructions Recorded Confirmed Aspirin [Aspirin 81mg EC Tab] 81 mg PO DAILY 07/20/17 09/25/17 Clopidogrel Bisulfate [Plavix 75mg 75 mg PO DAILY 07/20/17 10/26/17 Tab] Furosemide [Furosemide 40MG tAB] 40 mg PO DAILY 07/20/17 10/26/17 Metoprolol Tartrate [Lopressor 25 mg PO BID 07/20/17 10/26/17 25mg tablet] Pantoprazole Sodium [Protonix 40mg 40 mg PO DAILY 07/20/17 10/26/17 tablet] Pioglitazone HCl 30 mg PO DAILY 01/21/18 04/29/18 Gabapentin [Neurontin 100mg 200 mg PO TID 10/26/17 10/26/17 cap] Levothyroxine Sodium [Synthroid 25 mcg PO DAILYDM 10/26/17 10/26/17 25mcg (0.025mg) tablet] Allergies Allergy/AdvReac Type Severity Reaction Status Date / Time No Known Allergies Allergy Verified 07/20/17 22:04 [facility] History I have reviewed the patient's past medical history: Yes Medical History: Reports:: Congestive Heart Failure, Diabetes Mellitus Type 2, Hyperlipidemia, Hypertension Denies:: Cancer, Diabetes Mellitus Type 1, MRSA Other Medical History: Reports: Cataracts Other Surgeries: Yes: Angiogram, Appendectomy, Cancer Surgery (SKIN CA SURGERY) , Coronary Stent Amputation: No Fractures: No - Social History Smoking Status: Former smoker Alcohol Intake: never Occupational Status: retired, disabled Housing: house Household Members: none Family Hx:: Diabetes ROS Obtained: Yes All systems reviewed & no additional complaints Physical Exam - General General appearance: alert, in no apparent distress - Head Head exam: atraumatic, normocephalic, normal inspection - Eye Eye exam: Present: normal appearance, PERRL, EOMI - ENT ENT exam: Present: normal exam, normal oropharynx, mucous membranes moist, TM's normal bilaterally, normal external ear exam - Neck Neck exam: Present: normal inspection, full ROM, trachea midline, other (I did not appreciate JVD). Absent: tenderness, meningismus, lymphadenopathy - Chest Chest inspection: Present: normal inspection, symmetric chest wall rise - Respiratory Respiratory exam: Present: other (Decreased breath sounds over both lung bases with no audible rhonchi. ) - Cardiovascular Cardiovascular exam: Present: regular rate, normal rhythm. Absent: JVD - Abdominal Exam Abdominal exam: Present: soft, normal bowel sounds, other (No pulsating masses, bilateral equal femoral pulse. ). Absent: distention, tenderness, guarding, rebound, rigidity - exam: Present: normal testicular lie. Absent: circumcised (Marketed scrotal and penile edema producing phimosis unable to visualize the glans of penis. ) - Extremities Exam Extremities exam: Present: normal inspection, full ROM, normal capillary refill. Absent: calf tenderness - Back Exam Back exam: Present: normal inspection. Absent: tenderness, CVA tenderness (R), CVA tenderness (L) - Neurological Exam Neurological exam: Present: alert, oriented X3, CN II-XII intact, motor sensory deficit. Absent: normal gait - Psychiatric Psychiatric exam: Present: normal affect, normal mood - Skin Skin exam: Present: other (Bilateral feet diabetic ulcers especially over the right and left lateral maleoli.) - Lymphatic Lymphatic Findings: no adenopathy
[2017-10-26 09:53] LABS: Basophils % 0.5 % (0.1-2.0); Eosinophils # 0.1 K/mm3 (0.0-0.4); Eosinophils % 1.8 % (0.1-12.0); Hematocrit 32.2 % (42.0-52.0); Hemoglobin 10.1 g/dL (14.1-18.0); Lymphocytes # 0.9 K/mm3 (0.7-4.5); Lymphocytes % 21.4 K/mm3 (10-50); Mean Corpuscular HGB Conc 31.5 g/dL (31.8-35.4); Mean Corpuscular Hemoglobin 31.2 pg (27.0-31.2); Mean Platelet Volume 9.3 fl (7.4-10.4); Monocytes # 0.4 K/mm3 (0.1-1.0); Monocytes % 9.7 % (1.7-9.3); Neutrophils # 2.6 K/mm3 (1.8-7.8); Neutrophils % 66.6 % (37.0-80.0); Platelet Count 237 K/mm3 (142-424); Red Blood Count 3.25 M/mm3 (4.60-6.20); Red Cell Distribution Width 13.9 % (11.5-17.5); White Blood Count 3.9 K/mm3 (4.8-10.8)
[2017-10-26 10:17] LABS: Alanine Aminotransferase 24 U/L (12-78); Albumin Level 2.7 gm/dL (3.4-5.0); Albumin/Globulin Ratio 0.7 (1.1-1.8); Alkaline Phosphatase 230 U/L (46-116); Anion Gap 11.5 mEq/L (5-15); Aspartate Amino Transferase 34 U/L (15-37); Bilirubin,Total 0.8 mg/dL (0.2-1.0); Blood Urea Nitrogen 37 mg/dL (7-18); Calcium 9.3 mg/dL (8.5-10.1); Carbon Dioxide 30 mmol/L (21.0-32.0); Chloride 103 mmol/L (98-107); Creatine Kinase 246 U/L (39-308); Globulin 4.1 gm/dl (1.3-3.2); Glucose 216 mg/dL (74-106); Potassium 4.5 mmoL/L (3.5-5.1); Sodium 140 mmol/L (136-145); Total Protein,Serum 6.8 gm/dL (6.4-8.2)
--- NOTE | 2017-10-26 16:50 | History & Physical Report ---
*Admission Date: 10/26/17 *Chief complaint: Abdominal and scrotal swelling *History of present illness: 77-year-old white male with long history of diabetes type 2, treated at home with metformin and pioglitazone, who over the past week or so has developed increasing swelling of the lower abdomen and his scrotum. It has become painful , he is also had some concomitant increase in dyspnea with exertion. He has had no pain, no vomiting or diarrhea. He came to the emergency department today, and was admitted to service because of recent insurance change-patient has previously been a patient of Dr. Desean kwong. He currently sees Dr. Sudhakar Brasher in [place]. In the emergency department increased pulmonary markings were noted consistent with CHF, BNP is also elevated and he was given 1 dose of Lasix. Patient states that he feels somewhat better when I examined him on the floor this afternoon. [facility] History Medical History: Reports:: Cancer, Congestive Heart Failure (Echocardiogram August 2017 with EF 50%, moderate diastolic dysfunction), Diabetes Mellitus Type 2, Hyperlipidemia, Hypertension Denies:: Diabetes Mellitus Type 1, MRSA Other Medical History: Reports: Cataracts Comment: Also has coronary vascular disease with stent placement in the fall 2016, records unavailable Other Surgeries: Yes: Angiogram, Appendectomy, Cancer Surgery (SKIN CA SURGERY) , Coronary Stent Amputation: No Fractures: No - *Social History Smoking Status: Never smoker Alcohol Intake: never Occupational Status: retired, disabled Housing: house Household Members: none - Psychiatric History Expresses thoughts of harming self/others: None Suicide Plan Description: No Plan *Family Hx:: Diabetes Review of Systems - Review of Systems Review of systems:: pertinent systems reviewed and negative unless documented below - Constitutional Denies anorexia, Denies body ache(s), Denies chills, Denies fever(s) - Eyes Denies blind spots, Denies blurry vision - ENT Denies abnormal hearing - *Cardiovascular Reports shortness of breath, Reports generalized swelling, Reports leg swelling , Denies chest pain, Denies chest pain at rest, Denies irregular heart rhythm - *Respiratory Denies change in phlegm color, Denies chest congestion, Denies cough - *Gastrointestinal Denies abdominal pain, Denies belching, Denies bloating - *Genitourinary Reports scrotal swelling, Denies difficulty urinating, Denies erectile dysfunction - *Musculoskeletal Denies abnormal walking, Denies joint pain - *Neurologic Denies abnormal walking, Denies abnormal hearing - Psychiatric Denies abnormal sleep pattern Meds Home Medications Medication Instructions Recorded Confirmed Type Aspirin [Aspirin 81mg EC Tab] 81 mg PO DAILY 07/20/17 10/26/17 History Clopidogrel Bisulfate [Plavix 75mg 75 mg PO DAILY 07/20/17 10/26/17 History Tab] Furosemide [Furosemide 40MG tAB] 40 mg PO DAILY 07/20/17 10/26/17 History Metoprolol Tartrate [Lopressor 25 mg PO BID 07/20/17 10/26/17 History 25mg tablet] Pantoprazole Sodium [Protonix 40mg 40 mg PO DAILY 07/20/17 10/26/17 History tablet] Pioglitazone HCl 30 mg PO DAILY 07/20/17 10/26/17 History Gabapentin [Neurontin 100mg 200 mg PO TID 10/26/17 10/26/17 History cap] Levothyroxine Sodium [Synthroid 25 mcg PO DAILYDM 10/26/17 10/26/17 History 25mcg (0.025mg) tablet] Allergies Allergy/AdvReac Type Severity Reaction Status Date / Time No Known Allergies Allergy Verified 07/20/17 22:04 Exam Vital signs and Labs for Last 24 Hours: Temp Pulse Resp BP Pulse Ox 97.6 F 74 18 176/79 99 10/26/17 12:33 10/26/17 12:33 10/26/17 12:33 10/26/17 12:33 10/26/17 12:33 Laboratory Results - last 24 hr 10/26/17 09:45: WBC 3.9 L, RBC 3.25 L, Hgb 10.1 L, Hct 32.2 L, MCV 99.0 H, MCH 31.2, MCHC 31.5 L, RDW 13.9, Plt Count 237, MPV 9.3, Neut % (Auto) 66.6, Lymph % (Auto) 21.4, [place] % (Auto) 9.7 H, Eos % (Auto) 1.8, Baso % (Auto) 0.5, Neut # (Auto) 2.6, Lymph # (Auto) 0.9, [place] # (Auto) 0.4, Eos # (Auto) 0.1, Baso # ( Auto) 0.0 10/26/17 09:45: Sodium 140, Potassium 4.5, Chloride 103, Carbon Dioxide 30, Anion Gap 11.5, BUN 37 H, Creatinine 1.81 H, Estimated Creat Clear 45, Estimated GFR 37 L, Est GFR ( Amer) 44 L, Glucose 216 H, Calcium 9.3, Magnesium 2.2, Total Bilirubin 0.8, AST 34, ALT 24, Alkaline Phosphatase 230 H, Total Creatine Kinase 246, CK-MB (CK-2) 5.6 H D, CK-MB (CK-2) Rel Index 2.3, Troponin I < 0.02, Total Protein 6.8, Albumin 2.7 L, Globulin 4.1 H, Albumin/ Globulin Ratio 0.7 L 10/26/17 09:45: B-Natriuretic Peptide 605 H 10/26/17 10:57: Lactic Acid 1.0 I & O for Last 24 hours: Intake & Output 10/24/17 10/25/17 10/26/17 10/27/17 11:59 11:59 11:59 11:59 Output Total 125 / 125 300 / 300 Balance -125 / -125 -300 / -300 Weight 201 lb 199 lb 9 oz Narrative: Patient is pleasant, alert. Does not appear jaundiced, no scleral icterus. Lower abdomen is swollen with abdominal wall edema. Patient states that improved after Lasix dosing. Legs have some diabetic type wounds on his legs but no evidence of cellulitis at this point. He has 1+ edema. He has scrotal edema bilaterally that is painful. Lungs have crackles and rhonchi in both lower lung ring. Heart rate regular with flow murmur. No JVD. H&P: Result - Labs Labs: Short CBC 10/26/17 Range/Units 09:45 WBC 3.9 L (4.8-10.8) K/mm3 Hgb 10.1 L (14.1-18.0) g/dL Hct 32.2 L (42.0-52.0) % Plt Count 237 (142-424) K/mm3 BMP 10/26/17 09:45 Sodium 140 Potassium 4.5 Chloride 103 Carbon Dioxide 30 BUN 37 H Creatinine 1.81 H Glucose 216 H Calcium 9.3 Cardiac Enzymes 10/26/17 Range/Units 09:45 Total Creatine Kinase 246 (39-308) U/L CK-MB (CK-2) 5.6 H D (0.0-3.6) ng/ml Troponin I < 0.02 (0.00-0.06) ng/ml Liver Function 10/26/17 Range/Units 09:45 Total Bilirubin 0.8 (0.2-1.0) mg/dL AST 34 (15-37) U/L ALT 24 (12-78) U/L Alkaline Phosphatase 230 H (46-116) U/L Albumin 2.7 L (3.4-5.0) gm/dL Assessment and Plan (1) Acute renal insufficiency Current visit: Yes Status: Acute Category: Medical Code(s): N28.9 - Disorder of kidney and ureter, unspecified Possibly medicine effect from the metformin and pioglitazone. Plan will be to hold these medicines and gently hydrate with Lasix to see if we can push him behind the [place] curve.. (2) Anemia Current visit: Yes Status: Acute Category: Medical Code(s): D64.9 - Anemia , unspecified Seems to be chronic, possibly related to chronic disease. Unchanged over the past couple of months. (3) Congestive heart failure Current visit: Yes Status: Acute Qualifiers: Category: Medical Code(s): I50.9 - Heart failure, unspecified Diastolic dysfunction. Currently on beta-blockers. Continue this. Cautious diuresis as noted above. (4) Diabetic ulcer of ankle Current visit: Yes Status: Acute Category: Medical Code(s): E11.622 - Type 2 diabetes mellitus with other skin ulcer; L97.309 - Non-pressure chronic ulcer of unspecified ankle with unspecified severity
[2017-10-27 05:22] LABS: Basophils % 0.4 % (0.1-2.0); Eosinophils # 0.1 K/mm3 (0.0-0.4); Hemoglobin 9.6 g/dL (14.1-18.0); Lymphocytes # 0.9 K/mm3 (0.7-4.5); Mean Corpuscular Hemoglobin 31.8 pg (27.0-31.2); Mean Corpuscular Volume 99.4 fl (80-94); Mean Platelet Volume 8.5 fl (7.4-10.4); Monocytes # 0.3 K/mm3 (0.1-1.0); Monocytes % 8.1 % (1.7-9.3); Neutrophils # 2.7 K/mm3 (1.8-7.8); Neutrophils % 66.5 % (37.0-80.0); Platelet Count 227 K/mm3 (142-424); Red Blood Count 3.01 M/mm3 (4.60-6.20)
[2017-10-27 05:27] LABS: Hematocrit 29.9 % (42.0-52.0)
[2017-10-27 05:28] LABS: Anion Gap 10.3 mEq/L (5-15); Potassium 4.3 mmoL/L (3.5-5.1)
--- NOTE | 2017-10-27 07:21 | Pharmacy Consult Notes ---
[facility] Pharmacy VTE Monitoring - Patient Demographics Admission date: 10/26/17 Report Date: 10/27/17 Time: 07:20 Allergies/Adverse Reactions: Patient Allergies No Known Allergies Allergy (Verified 07/20/17 22:04) Height: 1.68 m Weight: 90.86 kg Patient Problems: Current Active Problems CAD (coronary artery disease) (Chronic) Congestive heart failure (Acute) Phimosis (Acute) Uncircumcised male (Acute) Diabetes (Acute) Diabetic ulcer of ankle (Acute) Anemia (Acute) Thrombocytopenia (Acute) Acute renal insufficiency (Acute) Medication side effect (Acute) - VTE Risk Labs: VTE Related Lab Results Hgb 9.6 g/dL (14.1-18.0) L 10/27/17 05:00 Hct 29.9 % (42.0-52.0) L 10/27/17 05:00 Plt Count 227 K/mm3 (142-424) 10/27/17 05:00 BUN 39 mg/dL (7-18) H 10/27/17 05:00 Creatinine 1.70 mg/dL (0.70-1.30) H 10/27/17 05:00 Estimated Creat Clear 47 mL/min (0-300) 10/27/17 05:00 Was VTE Risk Assessment Performed: Yes VTE Score: 2 VTE Risk Level: Very Low Risk - Prophylaxis VTE Prophylaxis Ordered?: Yes Types of VTE Prophylaxis: TEDS Knee High Location of Applied Device: Bilateral Lower Extremeties - VTE Diagnosis Confirmed Treatment or plan recommended: Continue Current Treatment
--- NOTE | 2017-10-27 07:52 | Discharge Summary ---
General - General Admission date:: 10/26/17 Discharge date: 10/27/17 HPI HPI: 77-year-old white male with long history of diabetes type 2, treated at home with metformin and pioglitazone, who over the past week or so has developed increasing swelling of the lower abdomen and his scrotum. It has become painful , he is also had some concomitant increase in dyspnea with exertion. He has had no pain, no vomiting or diarrhea. He came to the emergency department today, and was admitted to service because of recent insurance change-patient has previously been a patient of Dr. Desean kwong. He currently sees Dr. Sudhakar Brasher in [place]. In the emergency department increased pulmonary markings were noted consistent with CHF, BNP is also elevated and he was given 1 dose of Lasix. Patient states that he feels somewhat better when I examined him on the floor this afternoon. Hospital Course Hospital Course: Patient was admitted, and should have been placed in observation from the beginning of his stay. He was given low-dose IV fluids and this was augmented with Lasix. He had an excellent diuresis with this and scrotal swelling and his leg edema and abdominal edema also improved nicely. He did not lose that much weight, but his creatinine improved from 1.7-1.5. His diabetic oral agents were held. This morning he was feeling better, eating well and in no respiratory distress. Renal ultrasound is pending. I reviewed the results of his ultrasound from August showing ejection fraction 50 %, anterior wall hypokinesis and evidence of diastolic dysfunction. My plan will be to discharge him home today with higher dose Lasix, discontinuation of metformin and pioglitazone and the institution of Januvia at renal dose for his diabetes. He will need to see his regular physician in 4 days with BMP at that point and close glucose monitoring. Objective Vital signs: Temp Pulse Resp BP Pulse Ox 98.5 F 76 24 149/68 95 10/27/17 04:00 10/27/17 04:00 10/27/17 04:00 10/27/17 04:00 10/27/17 04:00 Narrative: Patient is awake, alert, eating breakfast well. Anterior lung rign are clear, heart rate regular with 2/6 murmur at abdomen is soft, abdominal wall has mild edema. However is improved. Scrotal edema and lower extremity edema have improved as well. Results Labs on day of discharge: Labs from last 24 hours 10/27/17 10/27/17 10/27/17 05:42 05:00 05:00 WBC 4.0 L RBC 3.01 L Hgb 9.6 L Hct 29.9 L MCV 99.4 H MCH 31.8 H MCHC 32.0 RDW 14.0 Plt Count 227 MPV 8.5 Neut % (Auto) 66.5 Lymph % (Auto) 23.0 [place] % (Auto) 8.1 Eos % (Auto) 2.0 Baso % (Auto) 0.4 Neut # (Auto) 2.7 Lymph # (Auto) 0.9 [place] # (Auto) 0.3 Eos # (Auto) 0.1 Baso # (Auto) 0.0 Sodium 141 Potassium 4.3 Chloride 106 Carbon Dioxide 29 Anion Gap 10.3 BUN 39 H Creatinine 1.70 H Estimated Creat Clear 47 Estimated GFR 39 L Est GFR ( Amer) 48 L Glucose 102 D POC Glucose 99 Lactic Acid Calcium Magnesium 2.1 Total Bilirubin AST ALT Alkaline Phosphatase Total Creatine Kinase CK-MB (CK-2) CK-MB (CK-2) Rel Index Troponin I B-Natriuretic Peptide Total Protein Albumin Globulin Albumin/Globulin Ratio 10/26/17 10/26/17 10/26/17 20:00 16:28 10:57 WBC RBC Hgb Hct MCV MCH MCHC RDW Plt Count MPV Neut % (Auto) Lymph % (Auto) [place] % (Auto) Eos % (Auto) Baso % (Auto) Neut # (Auto) Lymph # (Auto) [place] # (Auto) Eos # (Auto) Baso # (Auto) Sodium Potassium Chloride Carbon Dioxide Anion Gap BUN Creatinine Estimated Creat Clear Estimated GFR Est GFR ( Amer) Glucose POC Glucose 132 H 257 H Lactic Acid 1.0 Calcium Magnesium Total Bilirubin AST ALT Alkaline Phosphatase Total Creatine Kinase CK-MB (CK-2) CK-MB (CK-2) Rel Index Troponin I B-Natriuretic Peptide Total Protein Albumin Globulin Albumin/Globulin Ratio 10/26/17 10/26/17 10/26/17 09:45 09:45 09:45 WBC 3.9 L RBC 3.25 L Hgb 10.1 L Hct 32.2 L MCV 99.0 H MCH 31.2 MCHC 31.5 L RDW 13.9 Plt Count 237 MPV 9.3 Neut % (Auto) 66.6 Lymph % (Auto) 21.4 [place] % (Auto) 9.7 H Eos % (Auto) 1.8 Baso % (Auto) 0.5 Neut # (Auto) 2.6 Lymph # (Auto) 0.9 [place] # (Auto) 0.4 Eos # (Auto) 0.1 Baso # (Auto) 0.0 Sodium 140 Potassium 4.5 Chloride 103 Carbon Dioxide 30 Anion Gap 11.5 BUN 37 H Creatinine 1.81 H Estimated Creat Clear 45 Estimated GFR 37 L Est GFR ( Amer) 44 L Glucose 216 H POC Glucose Lactic Acid Calcium 9.3 Magnesium 2.2 Total Bilirubin 0.8 AST 34 ALT 24 Alkaline Phosphatase 230 H Total Creatine Kinase 246 CK-MB (CK-2) 5.6 H D CK-MB (CK-2) Rel Index 2.3 Troponin I < 0.02 B-Natriuretic Peptide 605 H Total Protein 6.8 Albumin 2.7 L Globulin 4.1 H Albumin/Globulin Ratio 0.7 L DS: Diagnosis - Discharge Diagnosis (1) Acute renal insufficiency Status: Acute (2) Anemia Status: Acute (3) Congestive heart failure Status: Acute (4) Diabetic ulcer of ankle Status: Chronic Discharge Plan - Patient Discharge Instructions ACTIVITY: Continue current activity DIET: low salt diet Patient Instructions: Diabetic Foot Ulcer, Type 2 Diabetes, Heart Failure, Coronary Artery Disease, Anemia, Acute Renal Failure, Phimosis - Follow up Plan Follow up with: Bulmaro Brasher [Referring] - 10/30/17 Disposition: Home, Self-Snf Medications: Home Medications Medication Instructions Recorded Confirmed Type Aspirin [Aspirin 81mg EC Tab] 81 mg PO DAILY 07/20/17 10/26/17 History Clopidogrel Bisulfate [Plavix 75mg 75 mg PO DAILY 07/20/17 10/26/17 History Tab] Metoprolol Tartrate [Lopressor 25 mg PO BID 07/20/17 10/26/17 History 25mg tablet] Pantoprazole Sodium [Protonix 40mg 40 mg PO DAILY 07/20/17 10/26/17 History tablet] Pioglitazone HCl 30 mg PO DAILY 07/20/17 10/26/17 History Gabapentin [Neurontin 100mg 200 mg PO TID 10/26/17 10/26/17 History cap] Levothyroxine Sodium [Synthroid 25 mcg PO DAILYDM 10/26/17 10/26/17 History 25mcg (0.025mg) tablet] Prescriptions/Medication Reconciliation: New Sitagliptin Phosphate [Januvia 50mg Tablet] 50 mg PO DAILY #30 tab Continue Aspirin [Aspirin 81mg EC Tab] 81 mg PO DAILY Pantoprazole Sodium [Protonix 40mg tablet] 40 mg PO DAILY Levothyroxine Sodium [Synthroid 25mcg (0.025mg) tablet] 25 mcg PO DAILYDM Gabapentin [Neurontin 100mg cap] 200 mg PO TID Metoprolol Tartrate [Lopressor 25mg tablet] 25 mg PO BID Clopidogrel Bisulfate [Plavix 75mg Tab] 75 mg PO DAILY Changed Furosemide [Furosemide 40MG tAB] 40 mg PO BIDL #60 tab Discontinued Pioglitazone HCl 30 mg PO DAILY
[2017-10-27 08:02] VITALS: BP 121/61
--- NOTE | 2017-10-27 22:03 | Cardiology Report ---
PROCEDURE: 2-D M-mode and color Doppler study INDICATIONS FOR THE TEST: Chest pain COPD Heart Murmur Tobacco Smoking Palpitations Fatigue Syncope Edema+ Hypertension+Diabetes Mellitus+ Rheumatic Fever SOB TORRES Obesity Hyperlipidemia+ Family History HD Additional History CHF, SKIN CA, EF 50% PATIENT INFORMATION HEIGHT: 66 WEIGHT:199 GENDER: Male B/P:176/79 2-D/M-MODE INTERPRETATION: 2-D MEASUREMENTS OBSERVED VALUES IN CMS Right Ventricular Dimension (RVDd) 2.8 Interventricular Septum (Thickness)(IVsd) 1.9 Left Ventricular Internal Dimensions(LVIDd) 3.5 Left Ventricular Posterior Wall (Thickness)(LVPWd) 1.4 Aortic Root Aortic Cusp Separation Left Atrial Dimensions (LAD) 2D 1. Left atrium is mildly enlarged, left ventricle is normal size, mild concentric left ventricular hypertrophy, visually estimated ejection fraction 55% with no obvious regional wall motion abnormality. 2. The right atrium and right ventricle are mildly enlarged with normal contractility. 3. The aortic valve is minimally thickened and fibrosed. 4. The mitral and tricuspid valve leaflets are minimally thickened. 5. The pulmonic valve is poorly visualized 6. No significant pericardial effusion noted. DOPPLER INTERROGATION: Doppler interrogation of the aortic, mitral and tricuspid valvular presence of mild mitral and tricuspid regurgitation, calculated right ventricular systolic pressure is 58 mmHg consistent with moderate pulmonary hypertension. Diastolic parameters are inconclusive. CONCLUSION: 1. Biatrial enlargement, normal left ventricular size, mild concentric left ventricular hypertrophy, visually estimated ejection fraction 55% with no obvious regional wall motion abnormality, diastolic parameters are inconclusive. 2. Thickened and calcified aortic valve without Doppler evidence of aortic stenosis, there is trace aortic insufficiency. 3. Mild mitral and tricuspid regurgitation, calculated right ventricular systolic pressure is 58 mmHg consistent with moderate pulmonary hypertension. 4. No significant pericardial effusion noted.
== END 2017-10-27 12:40 | disposition home or self-care (01) ==
LOC: 2ND 09:14 → ER 09:14 → INTOOBSV 11:06 → OBSVTOIN 11:06 → 2ND 12:00
PROVIDERS: ADMIT Internal Medicine Adolescent Medicine; ATTEND Internal Medicine Adolescent Medicine